=== PATIENT | female | born 1945 | race Caucasian/White ===

== ENCOUNTER 2020-12-14 08:52 | Observation (INO) | payer MEDICARE, SELFPAY ==
--- NOTE | ~2020-12-14 | CT_ITS ---
EXAMINATION: CT ABDOMEN AND PELVIS WITH CONTRAST CLINICAL INFORMATION: Right and left lower quadrant abdominal pain. History of diverticulitis. COMPARISON: 03/18/2015 CT TECHNIQUE: Multidetector volumetric images were obtained from the superior aspect of the liver through the pubic symphysis following administration 85 mL of Omnipaque 350 intravenous contrast. Sagittal and coronal reformatted images were obtained on the technologist's workstation. Oral contrast: No. This CT examination was performed using dose optimization techniques as appropriate, variously including the following: *Automated exposure control *Adjustment of mA and/or kV according to patient size (this includes techniques or standardized protocols for targeted exams where dose is matched to indication/reason for exam; i.e. extremities or head) *Use of iterative reconstruction technique DLP: 425 mGy-cm FINDINGS: LUNG BASES: The visualized lung bases are unremarkable. LIVER, GALLBLADDER, AND BILIARY TREE: No focal liver lesion. No biliary duct dilatation. Gallbladder surgically absent. Biliary tree is within normal limits. Normal enhancement of the hepatic veins and main portal vein. PANCREAS: Unremarkable. No acute inflammatory changes. SPLEEN: Unremarkable. ADRENAL GLANDS: Unremarkable. KIDNEYS AND URETERS: The kidneys are normal in size, shape, and attenuation. No hydronephrosis, hydroureter, or calculi seen. No perinephric stranding. BLADDER: Unremarkable. GASTROINTESTINAL TRACT: Prominent diverticulosis of the distal descending colon and sigmoid colon. Additional scattered colonic diverticula. No findings to suggest definite diverticulitis. Stomach is nondistended limiting evaluation. No dilated small bowel loops. The appendix contains fluid, and distally is dilated up to approximately 1 cm in diameter. Small focus of air within the lumen. No significant surrounding inflammatory changes evident. Findings are equivocal. Early or evolving appendicitis cannot be excluded. No free fluid or free air. ABDOMINAL WALL: Small fat-containing umbilical hernia. No pathologically enlarged lymph nodes. LYMPH NODES: No lymphadenopathy by size criteria is identified. VASCULAR: Moderate atherosclerotic vascular calcification. PELVIC VISCERA: Within normal limits. OSSEOUS STRUCTURES: Multilevel degenerative changes in the spine, more prominent at L2-L3, L4-L5. No evidence of acute fracture. CT/CT abdomen pelvis w con IMPRESSION: 1. The distal aspect of the appendix is prominent in caliber, measuring up to 1 cm in diameter. No significant surrounding inflammatory changes are seen. Findings are equivocal. Early or evolving acute appendicitis cannot be excluded. Please clinically correlate and manage. 2. Prominent diverticulosis of the distal descending colon and sigmoid colon. No surrounding inflammatory changes of wall thickening to suggest definite diverticulitis. 3. Thoracolumbar spine degenerative changes, slight progression from previous.
[2020-12-14 09:39] VITALS: BP 160/63; PULSE 75; RESP 14; TEMP 36.5; O2SAT 99; BMI 23.8
--- NOTE | 2020-12-14 09:59 | ED.ABDPAIN ---
HPI - Abdominal Pain General Chief Complaint: Abdominal Pain Stated Complaint: lower lt side abd pain Time Seen by Provider: 12/14/20 09:40 Source: patient Mode of arrival: ambulatory History of Present Illness HPI narrative: 75-year-old female a past medical history of diverticulitis, HTN, Lyme disease, hysterectomy, cholecystectomy, presenting to the ED complaining of lower abdominal discomfort > LLQ, bloating, nausea, and constipation x5 days. Denies fever, chills, vomiting, diarrhea, dysuria/hematuria MD elicited complaint: abdominal pain Related Data Allergies Allergy/AdvReac Type Severity Reaction Status Date / Time codeine [CODEINE] Allergy Unknown HIVES Unverified 05/07/20 16:13 lisinopril [LISINOPRIL] Allergy Unknown MIGRAINE/HEAD Unverified 05/07/20 16:13 PRESSURE morphine [MORPHINE] Allergy Unknown ITCHING Unverified 05/07/20 16:13 Review of Systems Review of Systems Constitutional: No Fever, No Chills Cardiovascular: No Chest Pain, No SOB Respiratory: No Cough, No Dyspnea Gastrointestinal: + Nausea, No Vomiting, No Diarrhea, +No Constipation, + Abdominal pain Genitourinary: No Dysuria, No Urinary Frequency, No Hematuria, No Flank Pain Musculoskeletal: No joint pain, No Myalgias, No Joint Swelling Skin: No Skin Lesions, No rash Neuro: No Weakness, No Numbness, No Paresthesias, No Dizziness, No Headache Yes all other systems are reviewed and are negative Physical Exam Vital Signs: Vital Signs: Last Vital Signs Temp 97.7 F 12/14/20 12:45 Pulse 68 12/14/20 12:45 Resp 19 12/14/20 12:45 BP 148/67 H 12/14/20 12:45 Pulse Ox 99 12/14/20 12:45 Body Mass Index 23.8 Const: General: cooperative, healthy appearing, comfortable and no acute distress Orientation/consciousness: patient oriented x3 Limitations: no limitations HENMT: Head: Yes normal to inspection Ears: hearing grossly normal bilaterally General nose exam: Normal external nose present Face and sinus: Yes normal facial exam Eyes: General: appearance normal, both eyes and all related structures EOM: EOMs intact bilaterally Neck: Neck: Yes normal visual inspection and Yes no meningeal signs Resp: Effort & Inspection: normal respiratory effort Cardio: Rate: regular rate GI: Inspection: Yes normal to inspection Palpation (GI): Soft to palpation, Tenderness to palpation present (GI) in the LLQ and in the RLQ, no guarding and not rigid : General: Yes no CVA tenderness Back/Spine/Pelvis: Back: no CVA tenderness Skin: Rashes: no rashes Wounds: no wounds Neuro: General: patient oriented x3 and no meningeal signs Gait exam (Neuro): Normal gait present Extrem: General: Yes normal to inspection Course Course Course Narrative: -no leukocytosis, labs otherwise unremarkable CT abdomen pelvis w con IMPRESSION: 1. The distal aspect of the appendix is prominent in caliber, measuring up to 1 cm in diameter. No significant surrounding inflammatory changes are seen. Findings are equivocal. Early or evolving acute appendicitis cannot be excluded. Please clinically correlate and manage. 2. Prominent diverticulosis of the distal descending colon and sigmoid colon. No surrounding inflammatory changes of wall thickening to suggest definite diverticulitis. 3. Thoracolumbar spine degenerative changes, slight progression from previous. >> case discussed with surgery Dr. Kinney who will evaluate patient -Dr. Kinney evaluated patient in the ED and will admit for further management/observation MDM - Abdominal Pain MDM Narrative Medical decision making narrative: 75-year-old female a past medical history of diverticulitis, HTN, Lyme disease, hysterectomy, cholecystectomy, presenting to the ED complaining of lower abdominal discomfort > LLQ, bloating, nausea, and constipation x5 days. On exam VS as, NAD/well-appearing, abdomen soft with RLQ/LLQ ttp, no rebound or guarding, no CVAT. Concern for diverticulitis/appendicitis vs colitis vs UTI. Lower concern for renal stone Plan: Labs, UA, CT AP, IVF, reassess Lab Data Result diagrams: 12/14/20 10:15 12/14/20 10:15 Labs: Lab Results 12/14/20 12/14/20 12/14/20 Range/Units 10:15 10:15 10:15 WBC 4.9 (4.8-10.8) X10*3/uL RBC 3.98 L (4.20-5.50) X10*6/uL Hgb 12.4 (12.0-16.0) g/dl Hct 36.8 L (37-47) % MCV 92.5 (80-98) fL MCH 31.2 (27.0-33.0) pg MCHC 33.7 (31.0-35.0) g/dl RDW 13.1 (11.0-16.0) % Plt Count 183 (160-400) X10*3/uL MPV 8.4 L (9.4-12.3) fL Immature Gran % (Auto) 0.2 (0.0-0.4) % Neut % (Auto) 52.9 (45-73) % Lymph % (Auto) 31.4 (20-40) % Webb % (Auto) 10.5 (2-11) % Eos % (Auto) 3.8 (0-4) % Baso % (Auto) 1.2 (0-2) % Lymph # (Auto) 1.6 (1.2-4.9) X10*3/uL Webb # (Auto) 0.5 (0.1-1.2) X10*3/uL Eos # (Auto) 0.2 (0.0-0.4) X10*3/uL Baso # (Auto) 0.1 (0.0-0.2) X10*3/uL Abs Immat Gran (auto) 0.01 (0.00-0.03) X10*3/uL Absolute Neuts (auto) 2.6 (2.0-8.3) X10*3/uL Absolute Nucleated RBC 0.000 (0.0-0.012) X10*3/uL Nucleated RBC % (auto) 0.0 (0.0-0.2) /100WBC Hold Blue Top SEE NOTE Sodium 139 (135-145) mmol/L Potassium 4.2 (3.3-5.1) mmol/L Chloride 105 (96-108) mmol/L Carbon Dioxide 26 (22-29) mmol/L Anion Gap 12 (12-20) BUN 13 (9-16) mg/dL Creatinine 0.80 (0.5-1.4) mg/dL Estim Creat Clear Calc 46.5 Estimated GFR > 60 Random Glucose 95 (60-115) mg/dL Calcium 9.6 (8.4-10.2) mg/dL Magnesium (1.6-2.6) mg/dL Total Bilirubin 0.5 (0.0-1.0) mg/dL Direct Bilirubin 0.2 (0.0-0.5) mg/dL AST 24 (5-31) U/L ALT 18 (0-31) U/L Alkaline Phosphatase 72 (39-117) U/L Total Protein 6.9 (6.5-8.0) g/dL Albumin 4.3 (3.5-5.0) g/dL Lipase (8-78) U/L Urine Color Urine Appearance Urine pH (5.0-8.0) Ur Specific [place] (1.005-1.025) Urine Protein (NEG-TRACE) MG/DL Urine Glucose (UA) (NEG) MG/DL Urine Ketones (NEG) MG/DL Urine Blood (NEG) Urine Nitrite (NEG) Ur Leukocyte Esterase (NEG) 12/14/20 12/14/20 Range/Units 10:15 11:01 WBC (4.8-10.8) X10*3/uL RBC (4.20-5.50) X10*6/uL Hgb (12.0-16.0) g/dl Hct (37-47) % MCV (80-98) fL MCH (27.0-33.0) pg MCHC (31.0-35.0) g/dl RDW (11.0-16.0) % Plt Count (160-400) X10*3/uL MPV (9.4-12.3) fL Immature Gran % (Auto) (0.0-0.4) % Neut % (Auto) (45-73) % Lymph % (Auto) (20-40) % [place] % (Auto) (2-11) % Eos % (Auto) (0-4) % Baso % (Auto) (0-2) % Lymph # (Auto) (1.2-4.9) X10*3/uL [place] # (Auto) (0.1-1.2) X10*3/uL Eos # (Auto) (0.0-0.4) X10*3/uL Baso # (Auto) (0.0-0.2) X10*3/uL Abs Immat Gran (auto) (0.00-0.03) X10*3/uL Absolute Neuts (auto) (2.0-8.3) X10*3/uL Absolute Nucleated RBC (0.0-0.012) X10*3/uL Nucleated RBC % (auto) (0.0-0.2) /100WBC Hold Blue Top Sodium (135-145) mmol/L Potassium (3.3-5.1) mmol/L Chloride (96-108) mmol/L Carbon Dioxide (22-29) mmol/L Anion Gap (12-20) BUN (9-16) mg/dL Creatinine (0.5-1.4) mg/dL Estim Creat Clear Calc Estimated GFR Random Glucose (60-115) mg/dL Calcium (8.4-10.2) mg/dL Magnesium 2.1 (1.6-2.6) mg/dL Total Bilirubin (0.0-1.0) mg/dL Direct Bilirubin (0.0-0.5) mg/dL AST (5-31) U/L ALT (0-31) U/L Alkaline Phosphatase (39-117) U/L Total Protein (6.5-8.0) g/dL Albumin (3.5-5.0) g/dL Lipase 21 (8-78) U/L Urine Color YELLOW Urine Appearance CLEAR Urine pH 5.5 (5.0-8.0) Ur Specific [place] <= 1.005 (1.005-1.025) Urine Protein NEG (NEG-TRACE) MG/DL Urine Glucose (UA) NEG (NEG) MG/DL Urine Ketones NEG (NEG) MG/DL Urine Blood NEG (NEG) Urine Nitrite NEG (NEG) Ur Leukocyte Esterase NEG (NEG) Discharge Plan Discharge Clinical Impression: Abdominal pain Patient Disposition: Admitted As Inpatient [facility] Past Medical History Attestation statement: The following information was validated with the patient. Medical History (Updated 12/14/20 @ 16:15 by LATESHA Manzano) Abdominal pain Diverticulitis HTN (hypertension) Lyme disease Surgical History History of cholecystectomy History of hysterectomy Social History Social History Alcohol intake: never Smoking Status: Never smoker Use of substances other than those prescribed or required for medical reasons: No Advance Directives: No Advance Directives Information Provided: No
[2020-12-14 10:19] LABS: MANUAL DIFF FLAG NO
[2020-12-14] MEDS: 0.9 % Sodium Chloride 1,000 ML 999 ML IVCONT (10:19)
[2020-12-14 10:22] LABS: Basophils Absolute Auto 0.1 X10*3/uL (0.0-0.2); Basophils Percent Auto 1.2 % (0-2); Eosinophils Absolute Auto 0.2 X10*3/uL (0.0-0.4); Eosinophils Percent Auto 3.8 % (0-4); Hematocrit 36.8 % (37-47); Hemoglobin 12.4 g/dl (12.0-16.0); Imm Gran Abs Auto 0.01 X10*3/uL (0.00-0.03); Imm Gran Pct Auto 0.2 % (0.0-0.4); Lymphocytes Absolute Auto 1.6 X10*3/uL (1.2-4.9); Lymphocytes Percent Auto 31.4 % (20-40); Mean Corpuscular HGB Conc 33.7 g/dl (31.0-35.0); Mean Corpuscular Hemoglobin 31.2 pg (27.0-33.0); Mean Corpuscular Volume 92.5 fL (80-98); Mean Platelet Volume 8.4 fL (9.4-12.3); Monocytes Absolute Auto 0.5 X10*3/uL (0.1-1.2); Monocytes Percent Auto 10.5 % (2-11); Neutrophils Absolute Auto 2.6 X10*3/uL (2.0-8.3); Neutrophils Percent Auto 52.9 % (45-73); Platelet Count 183 X10*3/uL (160-400); Red Blood Count 3.98 X10*6/uL (4.20-5.50); Red Cell Distribution Width 13.1 % (11.0-16.0); White Blood Count 4.9 X10*3/uL (4.8-10.8)
[2020-12-14 10:51] LABS: Alanine Aminotransferase 18 U/L (0-31); Albumin Level 4.3 g/dL (3.5-5.0); Alkaline Phosphatase 72 U/L (39-117); Anion Gap 12 (12-20); Aspartate Amino Transferase 24 U/L (5-31); Bilirubin Direct 0.2 mg/dL (0.0-0.5); Bilirubin Total 0.5 mg/dL (0.0-1.0); Blood Urea Nitrogen 13 mg/dL (9-16); Calcium 9.6 mg/dL (8.4-10.2); Carbon Dioxide 26 mmol/L (22-29); Chloride 105 mmol/L (96-108); Creatinine Clr Calc Pharmacy 46.5; Estimated Glomerular Filt Rate > 60; Glucose Random 95 mg/dL (60-115); Lipase 21 U/L (8-78); Magnesium 2.1 mg/dL (1.6-2.6); Potassium 4.2 mmol/L (3.3-5.1); Sodium 139 mmol/L (135-145); Total Protein 6.9 g/dL (6.5-8.0)
[2020-12-14 11:10] LABS: Glucose Urine UA NEG (NEG); Leukocyte Esterase Urine NEG (NEG); Nitrite Urine NEG (NEG); PH 5.5 (5.0-8.0); Specific Gravity - Urine <= 1.005 (1.005-1.025); Urine Blood NEG (NEG); Urine Ketones NEG (NEG); Urine Protein NEG (NEG-TRACE)
[2020-12-14 11:15] LABS: Appearance Urine CLEAR; Color Urine YELLOW
[2020-12-14] MEDS: iohexoL 350 MG/ML 100 ML INFUS..BTL IV (12:17)
[2020-12-14 12:45] VITALS: BP 148/67; PULSE 68; RESP 19; TEMP 36.5; O2SAT 99
--- NOTE | 2020-12-14 15:22 | P.HPGS_ITS ---
History of Present Illness History of Present Illness Date of Service: 12/15/20 Chief complaint: Abdominal pain Narrative: Bernie Reyes is a 75 year old female who came to the emergency room early this morning because of left lower quadrant pain. She says he has a history of acute diverticulitis and was concerned that this was another episode. She said that this lower lower quadrant pain started about 5 days ago. She denies any diarrhea although states that she has chronic constipation. She says she follows Dr. Lorenzo because of her GI complaints. Her last colonoscopy seems to be in 2011 and showed diverticulosis. She does not recall when she had her last episode of diverticulitis. She underwent a CAT scan today in the ER which showed a mildly distended appendix and the radiologist stated this could represent early appendicitis. I was therefore consulted. The patient currently says that she has minimal pain on the left lower quadrant. She denies any right lower quadrant pain. She denies any nausea or vomiting. Review of Systems Constitutional: Constitutional: Denies chills and Denies fever(s) Cardiovascular: Cardiovascular: Denies chest pain, Denies dyspnea and Denies dyspnea on exertion Respiratory: Respiratory: Denies cough, Denies dyspnea and Denies dyspnea on exertion Gastrointestinal: Gastrointestinal: Denies hematochezia, Denies change in bowel habits and Reports constipation Genitourinary: Genitourinary: Denies hematuria Musculoskeletal: Musculoskeletal: Denies back pain and Denies limited range of motion Neurologic: Denies focal weakness and Denies convulsions Psychiatric: Psychiatric: Denies depression and Denies mood swings PMF Past Medical History Medical History (Updated 12/14/20 @ 16:15 by LATESHA Manzano) Abdominal pain Diverticulitis HTN (hypertension) Lyme disease Surgical History Surgical History History of cholecystectomy History of hysterectomy Social History Social History Household Members: None Housing: House Alcohol intake: never Smoking Status: Never smoker Smoked in Last 30 Days: No Use of substances other than those prescribed or required for medical reasons: No Currently Displaying Signs/Symptoms of Drug Intoxication Withdrawal: No Have you been hit, kicked, punched, or otherwise hurt by someone within the past year? If so, by whom?: No Do you feel safe in your current relationship?: Yes Is there a partner from a previous relationship who is making you feel unsafe now?: No Are you made to feel afraid or neglected: No Advance Directives: No Advance Directives Information Provided: No Do you have thoughts of harming others: None Do you have a plan to hurt others: No Plan Recently lost weight without trying: No service: No Current occupational status: retired Meds Allergies Allergy/AdvReac Type Severity Reaction Status Date / Time codeine [CODEINE] Allergy Unknown Vomiting Unverified 12/14/20 21:15 lisinopril [LISINOPRIL] Allergy Unknown MIGRAINE/HEAD Unverified 05/07/20 16:13 PRESSURE morphine [MORPHINE] Allergy Unknown ITCHING Unverified 05/07/20 16:13 Physical Exam Vital Signs: Vital Signs: Last Vital Signs Temp 97.7 F 12/14/20 12:45 Pulse 68 12/14/20 12:45 Resp 19 12/14/20 12:45 BP 148/67 H 12/14/20 12:45 Pulse Ox 99 12/14/20 12:45 Body Mass Index 23.8 Const: General: comfortable and no acute distress Orientation/consciousness: patient oriented x3 Neck: Neck: Yes no lymphadenopathy Resp: Auscultation: clear to auscultation bilaterally Cardio: Rhythm: regular rhythm GI: Other: Very mild tenderness to deep palpation in the left lower quadrant Palpation (GI): Soft to palpation, not firm, Tenderness to palpation present (GI), no guarding and not rigid Neuro: General: patient oriented x3 Results Results Labs: Short CBC 12/14/20 Range/Units 10:15 WBC 4.9 (4.8-10.8) X10*3/uL Hgb 12.4 (12.0-16.0) g/dl Hct 36.8 L (37-47) % Plt Count 183 (160-400) X10*3/uL BMP 12/14/20 10:15 Sodium 139 Potassium 4.2 Chloride 105 Carbon Dioxide 26 BUN 13 Creatinine 0.80 Calcium 9.6 Liver Function 12/14/20 Range/Units 10:15 Total Bilirubin 0.5 (0.0-1.0) mg/dL Direct Bilirubin 0.2 (0.0-0.5) mg/dL AST 24 (5-31) U/L ALT 18 (0-31) U/L Alkaline Phosphatase 72 (39-117) U/L Albumin 4.3 (3.5-5.0) g/dL Urine 12/14/20 Range/Units 11:01 Urine Color YELLOW Urine Appearance CLEAR Urine pH 5.5 (5.0-8.0) Ur Specific [place] <= 1.005 (1.005-1.025) Urine Protein NEG (NEG-TRACE) MG/DL Urine Glucose (UA) NEG (NEG) MG/DL Assessment and Plan (1) Abdominal pain: Status: Acute She describes left lower quadrant pain for about 5 days now and has a history of acute diverticulitis. She had a CAT scan done showing mildly distended appendix. There is air in tip of the appendix which indicates a patent lumen. There are no inflammatory changes around the appendix as well and she has no tenderness on this side at all. She clinically does not have acute appendicitis. However, I will keep her overnight for observation in view of her left lower quadrant pain. Her CAT scan does not reveal any diverticulitis although she does have a history of diverticulosis and previous diverticulitis in the distant past. She has prominent diverticulosis of the sigmoid in the distal left colon but no inflammatory changes are seen. In the absence of leukocytosis, I will not start her antibiotics at this time. I will repeat her labs tomorrow. She does state that her pain is very minimal at this point.
[2020-12-14] MEDS: Lactated Ringers 1,000 ML 80 ML IVCONT (16:26)
[2020-12-14 18:43] VITALS: BP 154/56; PULSE 72; RESP 20; TEMP 36.6; O2SAT 96
[2020-12-14 21:04] VITALS: BP 167/65; PULSE 74; RESP 20; TEMP 36.2; O2SAT 97
[2020-12-14] MEDS: Heparin Sodium,Porcine 5,000 UNIT/ML VIAL 5000 UNIT SUBCUT (21:27)
[2020-12-14] MEDS: LORazepam 0.5 MG TABLET PO (21:44)
[2020-12-14 21:50] VITALS: BP 167/65; PULSE 74
[2020-12-14] MEDS: Valsartan 80 MG TABLET PO (21:50)
[2020-12-15] MEDS: Lactated Ringers 1,000 ML 80 ML IVCONT (03:52)
[2020-12-15 05:44] VITALS: BP 135/60; PULSE 63; RESP 20; TEMP 36.4; O2SAT 96
[2020-12-15 06:50] LABS: Hematocrit 34.6 % (37-47); Hemoglobin 11.6 g/dl (12.0-16.0); Mean Corpuscular HGB Conc 33.5 g/dl (31.0-35.0); Mean Corpuscular Hemoglobin 31.3 pg (27.0-33.0); Mean Corpuscular Volume 93.3 fL (80-98); Mean Platelet Volume 8.7 fL (9.4-12.3); Platelet Count 187 X10*3/uL (160-400); Red Blood Count 3.71 X10*6/uL (4.20-5.50); Red Cell Distribution Width 13.1 % (11.0-16.0); White Blood Count 4.6 X10*3/uL (4.8-10.8)
[2020-12-15 07:24] LABS: Anion Gap 13 (12-20); Blood Urea Nitrogen 10 mg/dL (9-16); Calcium 8.6 mg/dL (8.4-10.2); Carbon Dioxide 25 mmol/L (22-29); Chloride 107 mmol/L (96-108); Estimated Glomerular Filt Rate > 60; Glucose Random 84 mg/dL (60-115); Potassium 3.8 mmol/L (3.3-5.1); Sodium 141 mmol/L (135-145)
--- NOTE | 2020-12-15 07:30 | P.PNGS_ITS ---
Subjective Subjective Date of Service: 12/15/20 Interval history: feels well says she had a good night minimal pain on LLQ no pain at all on RLQ Physical Exam Vital Signs: Vital Signs: Last Vital Signs Temp 97.5 F 12/15/20 05:44 Pulse 63 12/15/20 05:44 Resp 20 12/15/20 05:44 BP 135/60 12/15/20 05:44 Pulse Ox 96 12/15/20 05:44 Body Mass Index 23.8 Laboratory Results - last 24 hr 12/14/20 12/14/20 12/14/20 10:15 10:15 10:15 WBC 4.9 RBC 3.98 L Hgb 12.4 Hct 36.8 L MCV 92.5 MCH 31.2 MCHC 33.7 RDW 13.1 Plt Count 183 MPV 8.4 L Immature Gran % (A uto) 0.2 Neut % (Auto) 52.9 Lymph % (Auto) 31.4 [place] % (Auto) 10.5 Eos % (Auto) 3.8 Baso % (Auto) 1.2 Lymph # (Auto) 1.6 [place] # (Auto) 0.5 Eos # (Auto) 0.2 Baso # (Auto) 0.1 Abs Immat Gran (au to) 0.01 Absolute Neuts (au to) 2.6 Absolute Nucleated RBC 0.000 Nucleated RBC % (a uto) 0.0 Hold Blue Top SEE NOTE Sodium 139 Potassium 4.2 Chloride 105 Carbon Dioxide 26 Anion Gap 12 BUN 13 Creatinine 0.80 Estim Creat Clear Calc 46.5 Estimated GFR > 60 Random Glucose 95 Calcium 9.6 Magnesium Total Bilirubin 0.5 Direct Bilirubin 0.2 AST 24 ALT 18 Alkaline Phosphata se 72 Total Protein 6.9 Albumin 4.3 Lipase Urine Color Urine Appearance Urine pH Ur Specific [place] y Urine Protein Urine Glucose (UA) Urine Ketones Urine Blood Urine Nitrite Ur Leukocyte Susanna ase 12/14/20 12/14/20 12/15/20 10:15 11:01 05:56 WBC 4.6 L RBC 3.71 L Hgb 11.6 L Hct 34.6 L MCV 93.3 MCH 31.3 MCHC 33.5 RDW 13.1 Plt Count 187 MPV 8.7 L Immature Gran % (A uto) Neut % (Auto) Lymph % (Auto) [place] % (Auto) Eos % (Auto) Baso % (Auto) Lymph # (Auto) [place] # (Auto) Eos # (Auto) Baso # (Auto) Abs Immat Gran (au to) Absolute Neuts (au to) Absolute Nucleated RBC 0.000 Nucleated RBC % (a uto) 0.0 Hold Blue Top Sodium Potassium Chloride Carbon Dioxide Anion Gap BUN Creatinine Estim Creat Clear Calc Estimated GFR Random Glucose Calcium Magnesium 2.1 Total Bilirubin Direct Bilirubin AST ALT Alkaline Phosphata se Total Protein Albumin Lipase 21 Urine Color YELLOW Urine Appearance CLEAR Urine pH 5.5 Ur Specific [place] y <= 1.005 Urine Protein NEG Urine Glucose (UA) NEG Urine Ketones NEG Urine Blood NEG Urine Nitrite NEG Ur Leukocyte Susanna ase NEG 12/15/20 05:56 WBC RBC Hgb Hct MCV MCH MCHC RDW Plt Count MPV Immature Gran % (A uto) Neut % (Auto) Lymph % (Auto) [place] % (Auto) Eos % (Auto) Baso % (Auto) Lymph # (Auto) [place] # (Auto) Eos # (Auto) Baso # (Auto) Abs Immat Gran (au to) Absolute Neuts (au to) Absolute Nucleated RBC Nucleated RBC % (a uto) Hold Blue Top Sodium 141 Potassium 3.8 Chloride 107 Carbon Dioxide 25 Anion Gap 13 BUN 10 Creatinine 0.69 Estim Creat Clear Calc 54.0 Estimated GFR > 60 Random Glucose 84 Calcium 8.6 D Magnesium Total Bilirubin Direct Bilirubin AST ALT Alkaline Phosphata se Total Protein Albumin Lipase Urine Color Urine Appearance Urine pH Ur Specific [place] y Urine Protein Urine Glucose (UA) Urine Ketones Urine Blood Urine Nitrite Ur Leukocyte Susanna ase Const: General: comfortable, no acute distress, alert and awake Resp: Effort & Inspection: normal respiratory effort Cardio: Rate: regular rate GI: Palpation (GI): Soft to palpation, not firm, Tenderness to palpation present (GI) (very minimal tenderness on deep palpation LLQ, no tenderness at all on RLQ), no guarding and not rigid Progress Note: A&P Assessment and plan (1) Abdominal pain: Status: Acute Assessment and Plan: very minimal pain WBC normal not c/w appendicitis CT does not show any inflammatory changes in abdomen advance diet if tolerating, possible home later today Fall Risk Details Current Medications: Current Medications Generic Name Dose Route Start Last Admin Trade Name Freq PRN Reason Stop Dose Admin Acetaminophen 650 mg 12/14/20 15:29 Acetaminophen 325 Mg Tablet PO Q6H PRN Pain, Mild (Pain Scale 1-3) Heparin Sodium (Porcine) 5,000 unit 12/14/20 21:00 12/14/20 21:27 Heparin Sodium,Porcine 5,000 Unit/Ml Vial SUBCUT 5,000 unit BID MARYSOL Administration Hydromorphone HCl 0.25 mg 12/14/20 15:29 Hydromorphone Hcl 0.5 Mg/0.5 Ml Syringe IVPUSH Q4H PRN Pain, Severe (Pain Scale 7-10) Lactated Ringer's 1,000 mls @ 80 mls/hr 12/14/20 16:00 12/15/20 03:52 Lr IVCONT 80 mls/hr .[id number] MARYSOL Administration Ibuprofen 600 mg 12/14/20 15:31 Ibuprofen 600 Mg Tablet PO Q6H PRN Pain, Moderate (Pain Scale 4-6 Lorazepam 0.5 mg 12/14/20 16:34 12/14/20 21:44 Lorazepam 0.5 Mg Tablet PO 0.5 mg BEDTIME PRN Administration insomnia Valsartan 80 mg 12/15/20 09:00 12/14/20 21:50 Valsartan 80 Mg Tablet PO 80 mg DAILY MARYSOL Administration Time Spent With Patient Time: Total time spent is greater than 50% in coordination of care (as documented) at patient's floor/unit and/or counseling patient: Time with patient: 15 - 24 minutes
[2020-12-15 08:09] VITALS: BP 138/62; PULSE 66; RESP 18; TEMP 36.1; O2SAT 99
--- NOTE | 2020-12-15 12:55 | MHC.CM.PN ---
nurse cardiac care nurse note electronic medical record reviewed along with case discussed with staff nurse and on multiple disciplainry rounds. met with patient ,she is active, indpendent in all adls and mobility, she continues to drive and transported herself into this car, and her car her is in the second er parking area . she has no vna services in the home , she does have home cpap through [facility] , discharge plan home possibly today tor tomorrow no services transportation self care [place] [facility] [place] pcp alf reaves
--- NOTE | 2020-12-15 13:51 | MHC.CM.PN ---
NURSE PROVIDER RELATIONS ADVOCATE NOTE ELECTRONIC MEDICAL RECORD REVIEWED ALONG WITH CASE DISCUSSED WITH STAFF NURSE , PATIENT WILL BE DISCHAGRED HOME TODAY NO SERVCIES NEEDED
--- NOTE | 2020-12-15 14:41 | P.EN_ITS ---
Event Note Date of Service: 12/15/20 Event Note: She continues to feel well Denies abdominal pain Tolerating diet No fevers Looks well Abdomen remained soft nondistended nontender She says that she feels ready to be discharged Will DC home Instructed to follow up with Dr. 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
[2020-12-15] MEDS: Acetaminophen 325 MG TABLET 650 MG PO (14:55)
--- NOTE | 2020-12-16 12:03 | PM.DS ---
DS: Providers Provider Date of Service: 12/16/20 Date of admission: 12/14/20 15:30 Primary care physician: Betty Bustos MD DS: Diagnosis Discharge Diagnosis (1) Abdominal pain: Status: Acute Problem details: 75-year-old female with history of diverticular disease, who came to the emergency room on 12/14/2020 because of left lower quadrant pain. She underwent a CAT scan which showed diverticulosis but did not reveal any inflammatory changes that would suggest diverticulitis. She did have some thickened appendix and there was a concern for appendicitis on the report. However clinically, she did not have any tenderness right lower quadrant. She was therefore admitted because of this concern. She was started on clear liquids patient tolerated well. She did not have any significant problems overnight. She had a very benign exam and did not have significant tenderness on her 1st hospital day. I advance her diet which she continued to tolerate. She did not have any leukocytosis. She was therefore discharged on December 15, 2020. She was also instructed to follow up with her wardrobe supervisor with regards to her diverticulosis as she says that she felt that she was due for colonoscopy. DS: Summary Time Spent with Patient Time attestation: Total time spent providing and/or coordinating discharge services: Discharge coordination time: Less than 30 minutes Physical Exam Vital Signs: Vital Signs: Last Vital Signs Temp 97.0 F 12/15/20 08:09 Pulse 66 12/15/20 08:09 Resp 18 12/15/20 08:09 BP 138/62 12/15/20 08:09 Pulse Ox 99 12/15/20 08:09 Body Mass Index 23.8 Const: General: comfortable and no acute distress Orientation/consciousness: patient oriented x3 Neck: Neck: Yes no lymphadenopathy Resp: Auscultation: clear to auscultation bilaterally Cardio: Rhythm: regular rhythm GI: Palpation (GI): Soft to palpation, nontender and no guarding Neuro: General: patient oriented x3 DS: Data Data Completed and Pending Labs on day of discharge: Laboratory Results WBC 4.6 X10*3/uL (4.8-10.8) L 12/15/20 05:56 RBC 3.71 X10*6/uL (4.20-5.50) L 12/15/20 05:56 Hgb 11.6 g/dl (12.0-16.0) L 12/15/20 05:56 Hct 34.6 % (37-47) L 12/15/20 05:56 MCV 93.3 fL (80-98) 12/15/20 05:56 MCH 31.3 pg (27.0-33.0) 12/15/20 05:56 MCHC 33.5 g/dl (31.0-35.0) 12/15/20 05:56 RDW 13.1 % (11.0-16.0) 12/15/20 05:56 Plt Count 187 X10*3/uL (160-400) 12/15/20 05:56 MPV 8.7 fL (9.4-12.3) L 12/15/20 05:56 Immature Gran % (Auto) 0.2 % (0.0-0.4) 12/14/20 10:15 Neut % (Auto) 52.9 % (45-73) 12/14/20 10:15 Lymph % (Auto) 31.4 % (20-40) 12/14/20 10:15 [place] % (Auto) 10.5 % (2-11) 12/14/20 10:15 Eos % (Auto) 3.8 % (0-4) 12/14/20 10:15 Baso % (Auto) 1.2 % (0-2) 12/14/20 10:15 Lymph # (Auto) 1.6 X10*3/uL (1.2-4.9) 12/14/20 10:15 [place] # (Auto) 0.5 X10*3/uL (0.1-1.2) 12/14/20 10:15 Eos # (Auto) 0.2 X10*3/uL (0.0-0.4) 12/14/20 10:15 Baso # (Auto) 0.1 X10*3/uL (0.0-0.2) 12/14/20 10:15 Abs Immat Gran (auto) 0.01 X10*3/uL (0.00-0.03) 12/14/20 10:15 Absolute Neuts (auto) 2.6 X10*3/uL (2.0-8.3) 12/14/20 10:15 Absolute Nucleated RBC 0.000 X10*3/uL (0.0-0.012) 12/15/20 05:56 Nucleated RBC % (auto) 0.0 /100WBC (0.0-0.2) 12/15/20 05:56 Hold Blue Top SEE NOTE 12/14/20 10:15 Sodium 141 mmol/L (135-145) 12/15/20 05:56 Potassium 3.8 mmol/L (3.3-5.1) 12/15/20 05:56 Chloride 107 mmol/L (96-108) 12/15/20 05:56 Carbon Dioxide 25 mmol/L (22-29) 12/15/20 05:56 Anion Gap 13 (12-20) 12/15/20 05:56 BUN 10 mg/dL (9-16) 12/15/20 05:56 Creatinine 0.69 mg/dL (0.5-1.4) 12/15/20 05:56 Estim Creat Clear Calc 54.0 12/15/20 05:56 Estimated GFR > 60 12/15/20 05:56 Random Glucose 84 mg/dL (60-115) 12/15/20 05:56 Calcium 8.6 mg/dL (8.4-10.2) D 12/15/20 05:56 Magnesium 2.1 mg/dL (1.6-2.6) 12/14/20 10:15 Total Bilirubin 0.5 mg/dL (0.0-1.0) 12/14/20 10:15 Direct Bilirubin 0.2 mg/dL (0.0-0.5) 12/14/20 10:15 AST 24 U/L (5-31) 12/14/20 10:15 ALT 18 U/L (0-31) 12/14/20 10:15 Alkaline Phosphatase 72 U/L (39-117) 12/14/20 10:15 Total Protein 6.9 g/dL (6.5-8.0) 12/14/20 10:15 Albumin 4.3 g/dL (3.5-5.0) 12/14/20 10:15 Lipase 21 U/L (8-78) 12/14/20 10:15 Urine Color YELLOW 12/14/20 11:01 Urine Appearance CLEAR 12/14/20 11:01 Urine pH 5.5 (5.0-8.0) 12/14/20 11:01 Ur Specific [place] <= 1.005 (1.005-1.025) 12/14/20 11:01 Urine Protein NEG MG/DL (NEG-TRACE) 12/14/20 11:01 Urine Glucose (UA) NEG MG/DL (NEG) 12/14/20 11:01 Urine Ketones NEG MG/DL (NEG) 12/14/20 11:01 Urine Blood NEG (NEG) 12/14/20 11:01 Urine Nitrite NEG (NEG) 12/14/20 11:01 Ur Leukocyte Esterase NEG (NEG) 12/14/20 11:01 Impressions Abdomen/Pelvis CT 12/14/20 09:44 IMPRESSION: 1. The distal aspect of the appendix is prominent in caliber, measuring up to 1 cm in diameter. No significant surrounding inflammatory changes are seen. Findings are equivocal. Early or evolving acute appendicitis cannot be excluded. Please clinically correlate and manage. 2. Prominent diverticulosis of the distal descending colon and sigmoid colon. No surrounding inflammatory changes of wall thickening to suggest definite diverticulitis. 3. Thoracolumbar spine degenerative changes, slight progression from previous. Discharge Plan Discharge Patient Disposition: Home, Self-Care Discharge Diagnosis: abdominal pain Referrals: Betty Bustos MD [Primary Care Provider] - 1 Week Discharge Orders: Discharge Order (Routine); Ordered 12/15/20 Ordered By: Vick Kinney Activity on Discharge: As tolerated Stand Alone Forms: Patient Portal Discharge page Care Plan Goals: high fiber diet control chronic constipation Health Concerns: diverticulosis Plan of Treatment: ffup with Dr. Lorenzo Assessment: much improved; pain resolved Discharge Date/Time: 12/15/20 15:16
== END 2020-12-15 15:16 | disposition home or self-care (01) ==
LOC: HO.ED 16:15 → HO.EDOVER 18:42 → HO.S3 19:00
PROVIDERS: Physician Assistant; Admitting Provider Surgery; Emergency Provider Internal Medicine; PCP Pediatrics; Visit Provider Surgery
DX: R10.32 Left lower quadrant pain (principal); R10.31 Right lower quadrant pain; K57.30 Diverticulosis of large intestine without perforation or abscess without bleeding; K59.09 Other constipation; R14.0 Abdominal distension (gaseous); M47.815 Spondylosis without myelopathy or radiculopathy, thoracolumbar region; I10 Essential (primary) hypertension; A69.20 Lyme disease, unspecified; Z90.710 Acquired absence of both cervix and uterus; Z90.49 Acquired absence of other specified parts of digestive tract; Z88.6 Allergy status to analgesic agent; Z88.8 Allergy status to other drugs, medicaments and biological substances; Z79.899 Other long term (current) drug therapy
CPT/HCPCS: 36415; 74177; 80048; 80076; 81003; 83690; 83735; 85025; 85027; 96360; 96361; 99218; 99225; 99285; Q9967

== ENCOUNTER 2021-05-15 05:54 | Emergency (ER) | payer MEDICARE, SELFPAY ==
--- NOTE | ~2021-05-15 | CT_ITS ---
EXAMINATION: CT ABDOMEN AND PELVIS WITH CONTRAST CLINICAL INFORMATION: Abdominal pain. History of diverticulitis. COMPARISON: Previous exam November 2020 TECHNIQUE: Multidetector volumetric images were obtained from the superior aspect of the liver through the pubic symphysis following administration 85 mL of Omnipaque 350 intravenous contrast. Sagittal and coronal reformatted images were obtained on the technologist's workstation. Oral contrast: Yes This CT examination was performed using dose optimization techniques as appropriate, variously including the following: *Automated exposure control *Adjustment of mA and/or kV according to patient size (this includes techniques or standardized protocols for targeted exams where dose is matched to indication/reason for exam; i.e. extremities or head) *Use of iterative reconstruction technique DLP: 456 mGy-cm FINDINGS: LUNG BASES: The visualized lung bases are unremarkable. LIVER, GALLBLADDER, AND BILIARY TREE: The liver is normal in size, shape, and attenuation. No focal hepatic lesion or biliary ductal dilatation is present. The gallbladder has been removed. PANCREAS: Unremarkable. SPLEEN: Unremarkable. ADRENAL GLANDS: Unremarkable. KIDNEYS AND URETERS: The kidneys are normal in size, shape, and attenuation. No hydronephrosis, hydroureter, or calculi seen. No perinephric stranding. BLADDER: Unremarkable. GASTROINTESTINAL TRACT: There is diverticulosis of the colon. There is wall thickening of the sigmoid colon. There is stranding of the surrounding fat. Findings are suggestive of acute diverticulitis. The appendix is slightly dilated and fluid-filled measuring up to 10 mm. There is air seen in the tip of the appendix. Periappendiceal fat is normal. The appendix is similar appearing to November 2020 exam.. ABDOMINAL WALL: No significant hernia is appreciated. LYMPH NODES: Normal. VASCULAR: Unremarkable. PELVIC VISCERA: Uterus appears to have been removed. No pelvic mass is seen. OSSEOUS STRUCTURES: There are degenerative changes of the spine. CT/CT abdomen pelvis w con IMPRESSION: Sigmoid diverticulitis. No evidence of obstruction, perforation or abscess. The appendix is slightly dilated and filled with fluid measuring up to 1 cm. This is similar to previous exam November 2020. Early appendicitis cannot be excluded and correlation with clinical exam recommended.
[2021-05-15 06:11] VITALS: BP 175/79; PULSE 84; RESP 16; TEMP 36; O2SAT 97; BMI 24.5
[2021-05-15 07:31] LABS: MANUAL DIFF FLAG NO
[2021-05-15 07:34] LABS: Basophils Absolute Auto 0.1 X10*3/uL (0.0-0.2); Basophils Percent Auto 0.7 % (0-2); Eosinophils Absolute Auto 0.1 X10*3/uL (0.0-0.4); Eosinophils Percent Auto 1.8 % (0-4); Hematocrit 37.3 % (37-47); Hemoglobin 12.7 g/dl (12.0-16.0); Imm Gran Abs Auto 0.01 X10*3/uL (0.00-0.03); Imm Gran Pct Auto 0.1 % (0.0-0.4); Lymphocytes Absolute Auto 1.4 X10*3/uL (1.2-4.9); Lymphocytes Percent Auto 17.8 % (20-40); Mean Corpuscular Hemoglobin 31.3 pg (27.0-33.0); Mean Corpuscular Volume 91.9 fL (80-98); Mean Platelet Volume 8.4 fL (9.4-12.3); Monocytes Absolute Auto 0.7 X10*3/uL (0.1-1.2); Neutrophils Absolute Auto 5.4 X10*3/uL (2.0-8.3); Neutrophils Percent Auto 70.6 % (45-73); Platelet Count 180 X10*3/uL (160-400); Red Blood Count 4.06 X10*6/uL (4.20-5.50); Red Cell Distribution Width 12.5 % (11.0-16.0); White Blood Count 7.6 X10*3/uL (4.8-10.8)
[2021-05-15 07:50] LABS: Alanine Aminotransferase 18 U/L (0-31); Albumin Level 4.4 g/dL (3.5-5.0); Alkaline Phosphatase 85 U/L (39-117); Anion Gap 15 (12-20); Aspartate Amino Transferase 23 U/L (5-31); Bilirubin Total 0.5 mg/dL (0.0-1.0); Blood Urea Nitrogen 10 mg/dL (9-16); Calcium 9.6 mg/dL (8.4-10.2); Carbon Dioxide 25 mmol/L (22-29); Chloride 104 mmol/L (96-108); Creatinine Clr Calc Pharmacy 51.5; Estimated Glomerular Filt Rate > 60; Glucose Random 126 mg/dL (60-115); Lipase 15 U/L (8-78); Potassium 4.1 mmol/L (3.3-5.1); Sodium 140 mmol/L (135-145); Total Protein 7.3 g/dL (6.5-8.0)
[2021-05-15 09:33] LABS: Appearance Urine CLEAR; Color Urine YELLOW; Glucose Urine UA NEG (NEG); Leukocyte Esterase Urine NEG (NEG); Nitrite Urine NEG (NEG); UACC Culture Trigger NO; Urine Blood TRACE (NEG); Urine Ketones NEG (NEG); Urine Protein NEG (NEG-TRACE)
[2021-05-15 09:46] LABS: Squamous Epithelial Cell Urine 1+ /LPF; WBC Urine 0 /HPF (0-4)
[2021-05-15 09:53] VITALS: BP 149/72; PULSE 86; RESP 18; O2SAT 98
--- NOTE | 2021-05-15 10:13 | ED.ABDPAIN ---
HPI - Abdominal Pain General Chief Complaint: Abdominal Pain Stated Complaint: Abd pain Time Seen by Provider: 05/15/21 09:02 Source: patient Mode of arrival: ambulatory Limitations: no limitations History of Present Illness HPI narrative: Patient is a 75-year-old female with a past medical history of diverticulitis, HTN and Lyme disease who presents with 2 days of left lower quadrant abdominal pain which radiates to the right side. She denies any fevers, nausea, vomiting or diarrhea. She states her last colonoscopy was 9 years ago and was normal. She follows with Dr. Lorenzo. She states she did have an episode of abdominal pain earlier this year for which she was admitted. Related Data Previous Rx's Medication Instructions Recorded ciprofloxacin HCl 500 mg tablet 500 mg PO Q12H #20 tab 05/15/21 metronidazole 500 mg tablet 500 mg PO Q8H #20 tab 05/15/21 (Flagyl) Allergies Allergy/AdvReac Type Severity Reaction Status Date / Time codeine [CODEINE] Allergy Unknown Vomiting Unverified 05/15/21 06:15 lisinopril [LISINOPRIL] Allergy Unknown MIGRAINE/HEAD Unverified 05/15/21 06:15 PRESSURE morphine [MORPHINE] Allergy Unknown ITCHING Unverified 05/15/21 06:15 Review of Systems Review of Systems Yes all other systems are reviewed and are negative Physical Exam Vital Signs: Vital Signs: Last Vital Signs Temp 96.8 F 05/15/21 06:11 Pulse 86 05/15/21 09:53 Resp 18 05/15/21 09:53 BP 149/72 H 05/15/21 09:53 Pulse Ox 98 05/15/21 09:53 Body Mass Index 24.5 Course Course Course Narrative: Patient is a 75-year-old female with a past medical history of diverticulitis, HTN and Lyme disease who presents with 2 days of left lower quadrant abdominal pain which radiates to the right side. VSS. Physical exam revealed RLQ tenderness L LQ tenderness and epigastric tenderness. Will get labs and abdominal CT scan and reassess. Concern for appendicitis versus diverticulitis versus pancreatitis verses UTI. Patient had a similar event happened earlier this year, information from her discharge She underwent a CAT scan which showed diverticulosis but did not reveal any inflammatory changes that would suggest diverticulitis.? She did have some thickened appendix and there was a concern for appendicitis on the report.? However clinically, she did not have any tenderness right lower quadrant.? She was therefore admitted because of this concern.? She was started on clear liquids patient tolerated well.? She did not have any significant problems overnight.? She had a very benign exam and did not have significant tenderness on her 1st hospital day.? I advance her diet which she continued to tolerate.? She did not have any leukocytosis.? She was therefore discharged on December 15, 2020 MDM - Abdominal Pain Lab Data Attestation: I reviewed the patient's lab results. Result diagrams: 05/15/21 07:27 05/15/21 07:27 Labs: Lab Results 05/15/21 05/15/21 05/15/21 Range/Units 07:27 07:27 09:15 WBC 7.6 (4.8-10.8) X10*3/uL RBC 4.06 L (4.20-5.50) X10*6/uL Hgb 12.7 (12.0-16.0) g/dl Hct 37.3 (37-47) % MCV 91.9 (80-98) fL MCH 31.3 (27.0-33.0) pg MCHC 34.0 (31.0-35.0) g/dl RDW 12.5 (11.0-16.0) % Plt Count 180 (160-400) X10*3/uL MPV 8.4 L (9.4-12.3) fL Immature Gran % (Auto) 0.1 (0.0-0.4) % Neut % (Auto) 70.6 (45-73) % Lymph % (Auto) 17.8 L (20-40) % [place] % (Auto) 9.0 (2-11) % Eos % (Auto) 1.8 (0-4) % Baso % (Auto) 0.7 (0-2) % Lymph # (Auto) 1.4 (1.2-4.9) X10*3/uL [place] # (Auto) 0.7 (0.1-1.2) X10*3/uL Eos # (Auto) 0.1 (0.0-0.4) X10*3/uL Baso # (Auto) 0.1 (0.0-0.2) X10*3/uL Abs Immat Gran (auto) 0.01 (0.00-0.03) X10*3/uL Absolute Neuts (auto) 5.4 (2.0-8.3) X10*3/uL Absolute Nucleated RBC 0.000 (0.0-0.012) X10*3/uL Nucleated RBC % (auto) 0.0 (0.0-0.2) /100WBC Sodium 140 (135-145) mmol/L Potassium 4.1 (3.3-5.1) mmol/L Chloride 104 (96-108) mmol/L Carbon Dioxide 25 (22-29) mmol/L Anion Gap 15 (12-20) BUN 10 (9-16) mg/dL Creatinine 0.79 (0.5-1.4) mg/dL Estim Creat Clear Calc 51.5 Estimated GFR > 60 Random Glucose 126 H (60-115) mg/dL Calcium 9.6 D (8.4-10.2) mg/dL Total Bilirubin 0.5 (0.0-1.0) mg/dL AST 23 (5-31) U/L ALT 18 (0-31) U/L Alkaline Phosphatase 85 (39-117) U/L Total Protein 7.3 (6.5-8.0) g/dL Albumin 4.4 (3.5-5.0) g/dL Lipase 15 (8-78) U/L Urine Color YELLOW Urine Appearance CLEAR Urine pH 7.0 (5.0-8.0) Ur Specific [place] 1.010 (1.005-1.025) Urine Protein NEG (NEG-TRACE) MG/DL Urine Glucose (UA) NEG (NEG) MG/DL Urine Ketones NEG (NEG) MG/DL Urine Blood TRACE (NEG) Urine Nitrite NEG (NEG) Ur Leukocyte Esterase NEG (NEG) Urine RBC 1-4 (0) /HPF Urine WBC 0 (0-4) /HPF Ur Squamous Epith Cells 1+ /LPF Urine Bacteria NONE /LPF Imaging Data CT scan - abdomen: Attestation: I personally reviewed and interpreted this imaging study as follows: Radiologist's impression: CT/CT abdomen pelvis w con IMPRESSION: Sigmoid diverticulitis. No evidence of obstruction, perforation or abscess. The appendix is slightly dilated and filled with fluid measuring up to 1 cm. This is similar to previous exam November 2020. Early appendicitis cannot be excluded and correlation with clinical exam recommended.? Discharge Plan Discharge Clinical Impression: Diverticulitis Patient Disposition: Home, Self-Care Instructions: Diverticulitis (ED) Additional Instructions: I have sent 2 medications to her pharmacy to take for the next 10 days. If you develop a fever, increased abdominal pain, please return to the emergency department immediately. Otherwise, please follow-up with your PCP. Prescriptions: New metronidazole [Flagyl] 500 mg tablet 500 mg PO Q8H Qty: 20 RF: 0 ciprofloxacin HCl 500 mg tablet 500 mg PO Q12H Qty: 20 RF: 0 Interventions: ED Discharge Assessment Last Done: 05/15/21 12:23 Discharge Date/Time: 05/15/21 12:24 [facility] Past Medical History Medical History Abdominal pain Diverticulitis HTN (hypertension) Lyme disease Surgical History History of cholecystectomy History of hysterectomy Social History Social History Household Members: None Housing: House Alcohol intake: never Advance Directives: No service: No Current occupational status: retired
[2021-05-15] MEDS: iohexoL 350 MG/ML 100 ML INFUS..BTL IV (10:48)
== END 2021-05-15 12:24 | disposition home or self-care (01) ==
PROVIDERS: Emergency Provider Emergency Medicine Emergency Medical Services; PCP Pediatrics
DX: K57.32 Diverticulitis of large intestine without perforation or abscess without bleeding (principal); R10.32 Left lower quadrant pain; Z79.899 Other long term (current) drug therapy
CPT/HCPCS: 36415; 74177; 80053; 81001; 83690; 85025; 99283; 99284; Q9967

== ENCOUNTER 2021-07-19 08:37 | Emergency (ER) | payer MEDICARE, SELFPAY ==
[2021-07-19 08:56] VITALS: BP 169/59; PULSE 81; RESP 18; TEMP 36.6; O2SAT 98; BMI 23.0
--- NOTE | 2021-07-19 09:21 | ED_ITS ---
HPI - Abdominal Pain General Chief Complaint: Abdominal Pain Stated Complaint: lt side abd pain Time Seen by Provider: 07/19/21 09:20 Source: patient Mode of arrival: ambulatory Limitations: no limitations History of Present Illness HPI narrative: patient states increased diarrhea and now with explosive diarrhea with foul smell. No fever no abdominal pain, patient has bloating. Patient has been followed by her primary did not yet see her GI. Patient denies blood but has mucous. No recent antibiotics. She does have a history of cdiff. Pertinent past history: diverticulitis Onset (ago): week(s) Quality: cramping Associated symptoms: diarrhea Related Data Previous Rx's Medication Instructions Recorded ciprofloxacin HCl 500 mg tablet 500 mg PO Q12H #20 tab 05/15/21 metronidazole 500 mg tablet 500 mg PO Q8H #20 tab 05/15/21 (Flagyl) Allergies Allergy/AdvReac Type Severity Reaction Status Date / Time codeine [CODEINE] Allergy Unknown Vomiting Unverified 05/15/21 06:15 lisinopril [LISINOPRIL] Allergy Unknown MIGRAINE/HEAD Unverified 05/15/21 06:15 PRESSURE morphine [MORPHINE] Allergy Unknown ITCHING Unverified 05/15/21 06:15 Review of Systems Constitutional: Reports no additional constitutional complaints Eyes: Reports no additional eye complaints Denies dizziness Cardiovascular: Reports no additional cardiovascular complaints Respiratory: Reports as per HPI Gastrointestinal: Reports no additional gastrointestinal complaints Genitourinary: Reports no additional female genitourinary complaints Musculoskeletal: Reports no additional musculoskeletal complaints Skin/Breast: Denies rash Reports system reviewed and no additional complaints, except as documented, Denies dizziness and Denies Sensory deficit (Neuro) Psychiatric: Denies anxiety Physical Exam Vital Signs: Vital Signs: Last Vital Signs Temp 98 F 07/19/21 08:56 Pulse 72 07/19/21 13:36 Resp 16 07/19/21 13:36 BP 146/66 H 07/19/21 13:36 Pulse Ox 98 07/19/21 13:36 Body Mass Index 23.0 Const: General: healthy appearing Nutritional Appearance: average body habitus Orientation/consciousness: oriented to person and patient oriented x3 Limitations: no limitations HENMT: Head: Yes normal to inspection Ears: external ears normal General nose exam: Normal external nose present Mouth: Normal oral and palatal mucosa present and oropharynx normal Throat: Yes posterior oropharynx normal Eyes: General: appearance normal, both eyes and all related structures Neck: Other: supple Neck: Yes normal visual inspection Chest: Chest palpation & inspection: normal inspection of the chest Resp: Auscultation: clear to auscultation bilaterally Cardio: Jugular venous distension: no JVD Rate: regular rate Rhythm: regular rhythm Heart sounds: S1 normal heart sound present and S2 normal heart sound present GI: Inspection: Yes normal to inspection Palpation (GI): Soft to palpation, nontender and No hepatosplenomegaly present Auscultation: normal bowel sounds : General: Yes no CVA tenderness Back/Spine/Pelvis: Back: no CVA tenderness Skin: General skin exam: no rashes or lesions noted Neuro: General: oriented to person and patient oriented x3 Cranial nerves: Yes CN's II-XII intact bilaterally Motor exam (neuro): 5/5 motor strength present throughout Sensory Exam: No Sensory deficit (Neuro) Extrem: General: Yes normal to inspection Psych: Appearance: grossly normal Course Reevaluation(s) Reevaluation #1: labs normal, no fecal leukocytes, cdiff negative. Patient with chronic diarrhea will have her follow up with Dr. Lorenzo from GI Time: 13:46 [facility] - Abdominal Pain Lab Data Result diagrams: 07/19/21 09:49 07/19/21 09:49 Labs: Lab Results 07/19/21 07/19/21 07/19/21 Range/Units 09:49 09:49 11:10 WBC 4.9 (4.8-10.8) X10*3/uL RBC 3.93 L (4.20-5.50) X10*6/uL Hgb 12.3 (12.0-16.0) g/dl Hct 36.8 L (37.0-47.0) % MCV 93.6 (80.0-98.0) fL MCH 31.3 (27.0-33.0) pg MCHC 33.4 (31.0-35.0) g/dl RDW 13.1 (11.0-16.0) % Plt Count 188 (160-400) X10*3/uL MPV 8.1 L (9.4-12.3) fL Immature Gran % (Auto) 0.4 (0.0-0.4) % Neut % (Auto) 58.8 (45-73) % Lymph % (Auto) 29.0 (20-40) % [place] % (Auto) 10.2 (2-11) % Eos % (Auto) 1.0 (0-4) % Baso % (Auto) 0.6 (0-2) % Lymph # (Auto) 1.4 (1.2-4.9) X10*3/uL [place] # (Auto) 0.5 (0.1-1.2) X10*3/uL Eos # (Auto) 0.1 (0.0-0.4) X10*3/uL Baso # (Auto) 0.0 (0.0-0.2) X10*3/uL Abs Immat Gran (auto) 0.02 (0.00-0.03) X10*3/uL Absolute Neuts (auto) 2.9 (2.0-8.3) x10*3/uL Absolute Nucleated RBC 0.000 (0.0-0.012) X10*3/uL Nucleated RBC % (auto) 0.0 (0.0-0.2) /100WBC Sodium 141 (135-145) mmol/L Potassium 4.0 (3.3-5.1) mmol/L Chloride 108 (96-108) mmol/L Carbon Dioxide 27 (22-29) mmol/L Anion Gap 10 L (12-20) BUN 7 L (9-16) mg/dL Creatinine 0.80 (0.5-1.4) mg/dL Estim Creat Clear Calc 46.5 Estimated GFR > 60 Random Glucose 98 (60-115) mg/dL Calcium 9.6 (8.4-10.2) mg/dL Urine Color STRAW Urine Appearance CLEAR Urine pH 6.0 (5.0-8.0) Ur Specific [place] <= 1.005 (1.005-1.025) Urine Protein NEG (NEG-TRACE) MG/DL Urine Glucose (UA) NEG (NEG) MG/DL Urine Ketones NEG (NEG) MG/DL Urine Blood NEG (NEG) Urine Nitrite NEG (NEG) Ur Leukocyte Esterase NEG (NEG) Stool Leukocytes, Qual (NEGATIVE) C. difficile Tox B Gene (Negative) 07/19/21 07/19/21 07/19/21 Range/Units 12:18 12:18 12:51 WBC (4.8-10.8) X10*3/uL RBC (4.20-5.50) X10*6/uL Hgb (12.0-16.0) g/dl Hct (37.0-47.0) % MCV (80.0-98.0) fL MCH (27.0-33.0) pg MCHC (31.0-35.0) g/dl RDW (11.0-16.0) % Plt Count (160-400) X10*3/uL MPV (9.4-12.3) fL Immature Gran % (Auto) (0.0-0.4) % Neut % (Auto) (45-73) % Lymph % (Auto) (20-40) % [place] % (Auto) (2-11) % Eos % (Auto) (0-4) % Baso % (Auto) (0-2) % Lymph # (Auto) (1.2-4.9) X10*3/uL [place] # (Auto) (0.1-1.2) X10*3/uL Eos # (Auto) (0.0-0.4) X10*3/uL Baso # (Auto) (0.0-0.2) X10*3/uL Abs Immat Gran (auto) (0.00-0.03) X10*3/uL Absolute Neuts (auto) (2.0-8.3) x10*3/uL Absolute Nucleated RBC (0.0-0.012) X10*3/uL Nucleated RBC % (auto) (0.0-0.2) /100WBC Sodium (135-145) mmol/L Potassium (3.3-5.1) mmol/L Chloride (96-108) mmol/L Carbon Dioxide (22-29) mmol/L Anion Gap (12-20) BUN (9-16) mg/dL Creatinine (0.5-1.4) mg/dL Estim Creat Clear Calc Estimated GFR Random Glucose (60-115) mg/dL Calcium (8.4-10.2) mg/dL Urine Color Urine Appearance Urine pH (5.0-8.0) Ur Specific [place] (1.005-1.025) Urine Protein (NEG-TRACE) MG/DL Urine Glucose (UA) (NEG) MG/DL Urine Ketones (NEG) MG/DL Urine Blood (NEG) Urine Nitrite (NEG) Ur Leukocyte Esterase (NEG) Stool Leukocytes, Qual NEGATIVE Cancelled (NEGATIVE) C. difficile Tox B Gene NEGATIVE (Negative) Discharge Plan Discharge Clinical Impression: Diarrhea Qualifiers: Diarrhea type: unspecified type Qualified Code(s): R19.7 - Diarrhea, unspecified Patient Disposition: Home, Self-Care Instructions: Acute Diarrhea (ED) Additional Instructions: See Dr. Lorenzo as soon as possible Prescriptions: No Action metronidazole [Flagyl] 500 mg tablet 500 mg PO Q8H Qty: 20 RF: 0 ciprofloxacin HCl 500 mg tablet 500 mg PO Q12H Qty: 20 RF: 0 Referrals: Betty Bustos MD [Primary Care Provider] - 3 days [facility] Past Medical History Medical History Abdominal pain Diverticulitis HTN (hypertension) Lyme disease Surgical History History of cholecystectomy History of hysterectomy Social History Social History Household Members: None Housing: House Alcohol intake: never Patient Tobacco Use Status: Never used Tobacco Use of substances other than those prescribed or required for medical reasons: No Advance Directives: No service: No Current occupational status: retired
[2021-07-19 09:55] LABS: MANUAL DIFF FLAG NO
[2021-07-19 09:57] LABS: Basophils Percent Auto 0.6 % (0-2); Eosinophils Absolute Auto 0.1 X10*3/uL (0.0-0.4); Hematocrit 36.8 % (37.0-47.0); Hemoglobin 12.3 g/dl (12.0-16.0); Imm Gran Abs Auto 0.02 X10*3/uL (0.00-0.03); Imm Gran Pct Auto 0.4 % (0.0-0.4); Lymphocytes Absolute Auto 1.4 X10*3/uL (1.2-4.9); Mean Corpuscular HGB Conc 33.4 g/dl (31.0-35.0); Mean Corpuscular Hemoglobin 31.3 pg (27.0-33.0); Mean Corpuscular Volume 93.6 fL (80.0-98.0); Mean Platelet Volume 8.1 fL (9.4-12.3); Monocytes Absolute Auto 0.5 X10*3/uL (0.1-1.2); Monocytes Percent Auto 10.2 % (2-11); Neutrophils Absolute Auto 2.9 x10*3/uL (2.0-8.3); Neutrophils Percent Auto 58.8 % (45-73); Platelet Count 188 X10*3/uL (160-400); Red Blood Count 3.93 X10*6/uL (4.20-5.50); Red Cell Distribution Width 13.1 % (11.0-16.0); White Blood Count 4.9 X10*3/uL (4.8-10.8)
[2021-07-19 10:12] LABS: Anion Gap 10 (12-20); Blood Urea Nitrogen 7 mg/dL (9-16); Calcium 9.6 mg/dL (8.4-10.2); Carbon Dioxide 27 mmol/L (22-29); Chloride 108 mmol/L (96-108); Creatinine Clr Calc Pharmacy 46.5; Estimated Glomerular Filt Rate > 60; Glucose Random 98 mg/dL (60-115); Sodium 141 mmol/L (135-145)
[2021-07-19 11:07] VITALS: BP 140/59; PULSE 78; RESP 18; O2SAT 99
[2021-07-19 11:17] LABS: Appearance Urine CLEAR; Color Urine STRAW; Glucose Urine UA NEG (NEG); Leukocyte Esterase Urine NEG (NEG); Nitrite Urine NEG (NEG); Specific Gravity - Urine <= 1.005 (1.005-1.025); Urine Blood NEG (NEG); Urine Ketones NEG (NEG); Urine Protein NEG (NEG-TRACE)
[2021-07-19 13:12] LABS: Leukocytes Stool Qualitative NEGATIVE (NEGATIVE)
[2021-07-19 13:36] VITALS: BP 146/66; PULSE 72; RESP 16; O2SAT 98
[2021-07-19 13:42] LABS: CDiff Gene PCR NEGATIVE (Negative)
== END 2021-07-19 14:18 | disposition home or self-care (01) ==
PROVIDERS: Emergency Provider Emergency Medicine; PCP Pediatrics
DX: R19.7 Diarrhea, unspecified (principal); Z79.899 Other long term (current) drug therapy
CPT/HCPCS: 36415; 80048; 81003; 85025; 87045; 87046; 87493; 89055; 99284

== ENCOUNTER 2021-08-23 11:23 | Emergency (ER) | payer MEDICARE, SELFPAY ==
[2021-08-23 11:55] VITALS: BP 135/65; PULSE 82; RESP 16; TEMP 36.6; O2SAT 98; BMI 22.3
--- NOTE | 2021-08-23 13:59 | ED_ITS ---
HPI - Nausea/Vomiting/Diarrhea General Chief complaint: Nausea/Vomiting/Diarrhea Stated complaint: diarrhea Time Seen by Provider: 08/23/21 13:45 Source: patient Limitations: no limitations History of Present Illness HPI Narrative: This is a 75 years old female presented to the emergency department which a chief complaint of diarrhea x1 day, denies any vomiting any fever any chills, diarrhea is described as watery MD elicited complaint: diarrhea Onset (ago): day(s) (1) Description of vomiting: watery Associated nausea: Yes Associated abdominal pain: No Quality: cramping Exacerbating factors: none Relieving factors: none Related Data Previous Rx's Medication Instructions Recorded ciprofloxacin HCl 500 mg tablet 500 mg PO Q12H #20 tab 05/15/21 metronidazole 500 mg tablet 500 mg PO Q8H #20 tab 05/15/21 (Flagyl) metronidazole 500 mg tablet 500 mg PO BID 14 Days #28 tab 07/21/21 Allergies Allergy/AdvReac Type Severity Reaction Status Date / Time codeine [CODEINE] Allergy Unknown Vomiting Unverified 05/15/21 06:15 lisinopril [LISINOPRIL] Allergy Unknown MIGRAINE/HEAD Unverified 05/15/21 06:15 PRESSURE morphine [MORPHINE] Allergy Unknown ITCHING Unverified 05/15/21 06:15 Review of Systems Review of Systems: Yes all other systems are reviewed and are negative Constitutional: Constitutional: Denies fever(s) Cardiovascular: Cardiovascular: Reports no additional cardiovascular complaints, Reports painful fingertips, Denies chest pain, Denies chest pain at rest and Denies chest pain with activity Respiratory: Respiratory: Reports no additional respiratory complaints Gastrointestinal: Gastrointestinal: Reports nausea Neurologic: Reports system reviewed and no additional complaints, except as documented PMFSH Past Medical History Medical History Abdominal pain Diverticulitis HTN (hypertension) Lyme disease Surgical History History of cholecystectomy History of hysterectomy Social History Social History Household Members: None Housing: House Alcohol intake: never Patient Tobacco Use Status: Never used Tobacco Advance Directives: No Advance Directives Information Provided: Yes service: No Current occupational status: retired Physical Exam Vital Signs: Vital Signs: Last Vital Signs Temp 97.9 F 08/23/21 11:55 Pulse 82 08/23/21 11:55 Resp 16 08/23/21 11:55 BP 135/65 08/23/21 11:55 Pulse Ox 98 08/23/21 11:55 BMI result Body Mass Index 22.3 Const: General: cooperative Nutritional Appearance: average body habitus HENMT: Head: Yes normal to inspection General nose exam: Normal external nose present Face and sinus: Yes normal facial exam Mouth: Normal oral and palatal mucosa present Throat: Yes posterior oropharynx normal Neck: Neck: Yes normal visual inspection, Yes full ROM and Yes no ly mphadenopathy Thyroid: Thyroid normal Chest: Chest palpation & inspection: normal inspection of the chest Resp: Effort & Inspection: normal respiratory effort and able to speak in complete sentences Auscultation: clear to auscultation bilaterally Cardio: Jugular venous distension: no JVD Rate: regular rate Rhythm: regular rhythm GI: Inspection: Yes normal to inspection Palpation (GI): Soft to palpation, not firm, nontender and no guarding Skin: General skin exam: no rashes or lesions noted Rashes: no rashes Course Reevaluation(s) Reevaluation #1: Labs are within normal limit, electrolytes are normal, vital signs stable she has no fever she is not tachycardic and she is normotensive. I think she can be discharged home . I will give a requisition to bring back stools for c diff /wbc. She states she has been on flagyl in the past for diarrhea. MDM - Nausea/Vomiting/Diarrhea Lab Data Result diagrams: 08/23/21 14:22 08/23/21 14:22 Labs: Lab Results 08/23/21 08/23/21 Range/Units 14:22 14:22 WBC 7.3 (4.8-10.8) X10*3/uL RBC 3.94 L (4.20-5.50) X10*6/uL Hgb 12.4 (12.0-16.0) g/dl Hct 36.8 L (37.0-47.0) % MCV 93.4 (80.0-98.0) fL MCH 31.5 (27.0-33.0) pg MCHC 33.7 (31.0-35.0) g/dl RDW 12.9 (11.0-16.0) % Plt Count 180 (160-400) X10*3/uL MPV 8.6 L (9.4-12.3) fL Immature Gran % (Auto) 0.3 (0.0-0.4) % Neut % (Auto) 66.9 (45-73) % Lymph % (Auto) 23.4 (20-40) % [place] % (Auto) 8.1 (2-11) % Eos % (Auto) 1.2 (0-4) % Baso % (Auto) 0.1 (0-2) % Lymph # (Auto) 1.7 (1.2-4.9) X10*3/uL [place] # (Auto) 0.6 (0.1-1.2) X10*3/uL Eos # (Auto) 0.1 (0.0-0.4) X10*3/uL Baso # (Auto) 0.0 (0.0-0.2) X10*3/uL Abs Immat Gran (auto) 0.02 (0.00-0.03) X10*3/uL Absolute Neuts (auto) 4.8 (2.0-8.3) x10*3/uL Absolute Nucleated RBC 0.000 (0.0-0.012) X10*3/uL Nucleated RBC % (auto) 0.0 (0.0-0.2) /100WBC Sodium 141 (135-145) mmol/L Potassium 4.0 (3.3-5.1) mmol/L Chloride 106 (96-108) mmol/L Carbon Dioxide 29 (22-29) mmol/L Anion Gap 10 L (12-20) BUN 7 L (9-16) mg/dL Creatinine 0.77 (0.5-1.4) mg/dL Estim Creat Clear Calc 48.4 Estimated GFR > 60 Random Glucose 101 (60-115) mg/dL Calcium 9.6 (8.4-10.2) mg/dL Total Bilirubin 0.2 (0.0-1.0) mg/dL AST 23 (5-31) U/L ALT 19 (0-31) U/L Alkaline Phosphatase 76 (39-117) U/L Total Protein 7.2 (6.5-8.0) g/dL Albumin 4.3 (3.5-5.0) g/dL Discharge Plan Discharge Clinical Impression: Diarrhea Patient Disposition: Home, Self-Care Instructions: Acute Diarrhea (ED) Additional Instructions: Follow-up with your primary care physician, return if you worse, vomiting, fever. Bring back the stools to the labs so we could check for C diff Prescriptions: No Action metronidazole [Flagyl] 500 mg tablet 500 mg PO Q8H Qty: 20 RF: 0 ciprofloxacin HCl 500 mg tablet 500 mg PO Q12H Qty: 20 RF: 0 metronidazole 500 mg tablet 500 mg PO BID 14 Days Qty: 28 RF: 0 Referrals: Betty Bustos MD [Primary Care Provider] - 2 days
[2021-08-23 14:26] LABS: MANUAL DIFF FLAG NO
[2021-08-23 14:28] LABS: Basophils Percent Auto 0.1 % (0-2); Eosinophils Absolute Auto 0.1 X10*3/uL (0.0-0.4); Eosinophils Percent Auto 1.2 % (0-4); Hematocrit 36.8 % (37.0-47.0); Hemoglobin 12.4 g/dl (12.0-16.0); Imm Gran Abs Auto 0.02 X10*3/uL (0.00-0.03); Imm Gran Pct Auto 0.3 % (0.0-0.4); Lymphocytes Absolute Auto 1.7 X10*3/uL (1.2-4.9); Lymphocytes Percent Auto 23.4 % (20-40); Mean Corpuscular HGB Conc 33.7 g/dl (31.0-35.0); Mean Corpuscular Hemoglobin 31.5 pg (27.0-33.0); Mean Corpuscular Volume 93.4 fL (80.0-98.0); Mean Platelet Volume 8.6 fL (9.4-12.3); Monocytes Absolute Auto 0.6 X10*3/uL (0.1-1.2); Monocytes Percent Auto 8.1 % (2-11); Neutrophils Absolute Auto 4.8 x10*3/uL (2.0-8.3); Neutrophils Percent Auto 66.9 % (45-73); Platelet Count 180 X10*3/uL (160-400); Red Blood Count 3.94 X10*6/uL (4.20-5.50); Red Cell Distribution Width 12.9 % (11.0-16.0); White Blood Count 7.3 X10*3/uL (4.8-10.8)
[2021-08-23] MEDS: ondansetron HCL 4 MG/2 ML VIAL IVPUSH (14:39)
[2021-08-23] MEDS: 0.9 % Sodium Chloride 1,000 ML 999 ML IVCONT (14:39)
[2021-08-23 14:42] LABS: Alanine Aminotransferase 19 U/L (0-31); Albumin Level 4.3 g/dL (3.5-5.0); Alkaline Phosphatase 76 U/L (39-117); Anion Gap 10 (12-20); Aspartate Amino Transferase 23 U/L (5-31); Bilirubin Total 0.2 mg/dL (0.0-1.0); Blood Urea Nitrogen 7 mg/dL (9-16); Calcium 9.6 mg/dL (8.4-10.2); Carbon Dioxide 29 mmol/L (22-29); Chloride 106 mmol/L (96-108); Creatinine Clr Calc Pharmacy 48.4; Estimated Glomerular Filt Rate > 60; Glucose Random 101 mg/dL (60-115); Sodium 141 mmol/L (135-145); Total Protein 7.2 g/dL (6.5-8.0)
== END 2021-08-23 16:03 | disposition home or self-care (01) ==
PROVIDERS: Emergency Provider Emergency Medicine; PCP Pediatrics
DX: R19.7 Diarrhea, unspecified (principal); I10 Essential (primary) hypertension
CPT/HCPCS: 36415; 80053; 85025; 96361; 96374; 99282; 99284; J2405

== ENCOUNTER 2021-08-27 11:02 | Outpatient (REF) | payer MEDICARE, SELFPAY ==
[2021-08-27 12:16] LABS: Leukocytes Stool Qualitative NEGATIVE (NEGATIVE)
[2021-08-27 12:54] LABS: CDiff Gene PCR NEGATIVE (Negative)
== END 2021-08-27 11:03 | disposition home or self-care (01) ==
LOC: HO.LNP 11:02
PROVIDERS: Referring Provider Internal Medicine; Visit Provider Emergency Medicine
DX: R19.7 Diarrhea, unspecified (principal)
CPT/HCPCS: 87015; 87177; 87209; 87272; 87493; 89055

== ENCOUNTER 2021-09-08 12:51 | Outpatient (REF) | payer MEDICARE, SELFPAY ==
[2021-09-10 13:41] LABS: Immunoglobulin A 236 mg/dL (70-320)
[2021-09-13 14:57] LABS: Gliadin Deamidated IgA Ab 5.2 U/mL; Gliadin Deamidated IgG Ab <1.0 U/mL; Transglutaminase Ab IgG 1.4 U/mL; Transglutaminase IgA <1.0 U/mL
[2021-09-14 13:31] LABS: Endomysial IgA Antibody Negative (Negative)
== END 2021-09-08 12:52 | disposition home or self-care (01) ==
LOC: HO.LAB 12:51
PROVIDERS: PCP Pediatrics; Visit Provider Internal Medicine
DX: R19.7 Diarrhea, unspecified (principal)
CPT/HCPCS: 36415; 82784; 86231; 86258; 86364

== ENCOUNTER 2021-10-08 10:11 | Day surgery (SDC) | payer MEDICARE, SELFPAY ==
[2021-10-04 11:00] VITALS: BMI 22.4
--- NOTE | 2021-10-07 08:59 | HO.ANESPROP2 ---
Documented by User: Sandra Stern NP 10/07/21 09:00 HPI - Anesthesia Eval Consult details Narrative: 75yo F for Colonoscopy [facility] Past Medical History Medical History (Updated 10/08/21 @ 10:50 by India Huston, LORRIE) Abdominal pain Diverticulitis HTN (hypertension) IBS (irritable bowel syndrome) Lyme disease Rectocele Sleep apnea Urethral prolapse Surgical History Surgical History H/O colonoscopy History of cholecystectomy History of esophagogastroduodenoscopy (EGD) History of hysterectomy Hx of nasal septoplasty Social History Social History Household Members: None Housing: House Alcohol intake: never Patient Tobacco Use Status: Never used Tobacco Use of substances other than those prescribed or required for medical reasons: No Are you DNR?: No Advance Directives: No Advance Directives Information Provided: Yes Patient : No (hysterectomy) service: No Current occupational status: retired Meds Allergies Allergy/AdvReac Type Severity Reaction Status Date / Time tetanus and diphtheria Allergy Severe Confusion Verified 10/08/21 10:49 toxoids codeine [CODEINE] Allergy Intermediate Vomiting Verified 10/04/21 10:59 lisinopril [LISINOPRIL] Allergy Intermediate MIGRAINE/HEAD Verified 10/04/21 10:59 PRESSURE morphine [MORPHINE] Allergy Intermediate ITCHING Verified 10/04/21 10:59 Home Medications Medication Instructions Recorded Confirmed Last Taken Type estradiol (Estrace) 1 appful VAGINAL DAILY 10/04/21 10/04/21 Unknown History famotidine 20 mg tablet (Pepcid) 20 mg PO BEDTIME 10/04/21 10/04/21 Unknown History irbesartan 300 mg tablet 1 tab PO DAILY 10/04/21 10/04/21 Unknown History lorazepam 0.5 mg tablet 1 tab PO BID PRN 10/04/21 10/04/21 Unknown History omega 0-eeb-iaf-fish oil 1,000 mg 2 cap PO DAILY 10/04/21 10/04/21 Unknown History (120 mg-180 mg) capsule (Fish Oil) Exam Exam Date and Time: October 07, 2021 0859 Height,Weight and Vital Signs: Height 5 ft 1.5 in Weight 54.885 kg Assessment and Plan Assessment Anesthesia Assessment: Chart Reviewed Documented by User: Mayo Escobar MD 10/08/21 11:54 HPI - Anesthesia Eval Consult details Narrative: 75yo F for Colonoscopy after the prep yesterday patient got dirrhea and dehydrated , went to the Ed , workup negative . Attributed to dehydration , IV fluids given in the ED . KYRIE on CPA, LYME disease , diverticulitis recently . [facility] Past Medical History Medical History (Updated 10/08/21 @ 10:50 by India Huston, RN) Abdominal pain Diverticulitis HTN (hypertension) IBS (irritable bowel syndrome) Lyme disease Rectocele Sleep apnea Urethral prolapse Functional capacity: independent ambulation Family History Family history of problems with anesthesia: Yes (Delayed emergence , mother ) Surgical History Surgical History H/O colonoscopy History of cholecystectomy History of esophagogastroduodenoscopy (EGD) History of hysterectomy Hx of nasal septoplasty History of Problems with Anesthesia: No Social History Social History Household Members: None Housing: House Alcohol intake: never Patient Tobacco Use Status: Never used Tobacco Use of substances other than those prescribed or required for medical reasons: No Are you DNR?: No Advance Directives: No Advance Directives Information Provided: Yes Patient : No (hysterectomy) service: No Current occupational status: retired Meds Allergies Allergy/AdvReac Type Severity Reaction Status Date / Time tetanus and diphtheria Allergy Severe Confusion Verified 10/08/21 10:49 toxoids codeine [CODEINE] Allergy Intermediate Vomiting Verified 10/04/21 10:59 lisinopril [LISINOPRIL] Allergy Intermediate MIGRAINE/HEAD Verified 10/04/21 10:59 PRESSURE morphine [MORPHINE] Allergy Intermediate ITCHING Verified 10/04/21 10:59 Home Medications Medication Instructions Recorded Confirmed Last Taken Type estradiol (Estrace) 1 appful VAGINAL DAILY 02/14/22 02/14/22 Unknown History famotidine 20 mg tablet (Pepcid) 20 mg PO BEDTIME 10/04/21 10/04/21 Unknown History irbesartan 300 mg tablet 1 tab PO DAILY 10/04/21 10/04/21 Unknown History lorazepam 0.5 mg tablet 1 tab PO BID PRN 10/04/21 10/04/21 Unknown History omega 2-jme-siq-fish oil 1,000 mg 2 cap PO DAILY 10/04/21 10/04/21 Unknown History (120 mg-180 mg) capsule (Fish Oil) Exam Airway Mallampati Class: III Denture: Upper Loose/Missing/Broken Teeth: Yes (Crowns ) Heart: rrr Lungs: bl breath sounds Assessment and Plan Assessment Anesthesia Assessment: Anesthesia Plan Discussed Final Anesthetic Review Family History of Problems with Anesthesia: Yes (Delayed emergence , mother ) History of Problems with Anesthesia: No NPO: Yes ASA Class: III Final Preanesthetic Review: Meds/Allgs Chart Reviewed, Consent Obtained/Reviewed and Anes Risks/Benef Reviewed Patient Risk: High Procedure Risk: Intermediate Anesthetic Plan Anesthetic Plan: MAC: Disposition: Standard PACU
[2021-10-08 10:46] VITALS: BP 132/75; PULSE 102; RESP 18; TEMP 36.8; O2SAT 98
[2021-10-08] MEDS: Lactated Ringers 1,000 ML 100 ML IVCONT (10:59)
[2021-10-08 11:51] VITALS: BP 120/55; PULSE 80; RESP 14; TEMP 36.6; O2SAT 98
--- NOTE | 2021-10-08 11:53 | P.BOP_ITS ---
Brief Operative Note Date of Service: 10/08/21 Pre-op diagnosis: Screening Post-op diagnosis: other (Diverticulosis, R/O microscopic colitis) Procedure: Colonoscopy to the cecum and TI with biopsies Surgeon: Don Lorenzo Anesthesia: MAC Was an Clerk Supervisor used for this Procedure?: No Estimated blood loss (mL): 2.0 Pathology: other (A. Ascending colon B. Descending colon) Condition: stable Disposition: PACU
[2021-10-08 12:06] VITALS: BP 139/64; PULSE 80; RESP 16; TEMP 36.6; O2SAT 99
--- NOTE | 2021-10-08 12:40 | OP_ITS ---
SURGEON: Don Lorenzo MD INDICATIONS: The patient presents for evaluation of colorectal cancer screening and irritable bowel syndrome. Full consent was obtained from her for this, including risks of bleeding and perforation. PREOPERATIVE DIAGNOSIS: POSTOPERATIVE DIAGNOSIS: PROCEDURE PERFORMED: Colonoscopy to cecum and terminal ileum with biopsies. ESTIMATED BLOOD LOSS: COMPLICATIONS: ANESTHESIA: Monitored anesthesia care. ASSISTANTS: SPECIMENS: PREOPERATIVE DIAGNOSES: Colorectal cancer screening and irritable bowel syndrome. POSTOPERATIVE DIAGNOSES: Colorectal cancer screening, irritable bowel syndrome, diverticulosis, rule out microscopic colitis, internal hemorrhoids. DESCRIPTION OF PROCEDURE: The patient was placed in the left lateral decubitus position. The digital rectal exam revealed no abnormalities. The Olympus video pediatric colonoscope was entered into the rectum and advanced easily to the cecum. Once in the cecum, I did identify normal-appearing cecal pouch with appendiceal orifice and a normal-appearing ileocecal valve. The terminal ileum was cannulated and appeared normal. The scope was withdrawn back from the colon. The entire cecum and ileocecal valve appeared normal. The scope was slowly withdrawn assessing all mucosal surfaces carefully. Preparation was excellent. I did not visualize any sign of polyps, colitis, nor angiodysplasia. There was a mild amount of sigmoid diverticulosis. I did obtain random biopsies in the ascending and descending colon. In the rectum, scope was retroflexed visualizing some internal hemorrhoids, but no other pathology. The rectal mucosa appeared normal. The scope was straightened and withdrawn from the patient. She tolerated the procedure well and was returned to the recovery area in stable condition. IMPRESSION: 1. Diverticulosis. 2. Internal hemorrhoids. 3. Rule out microscopic colitis. PLAN: The results of the biopsies will be checked. Given today's otherwise negative exam and her age, I do not think she will need any further colonoscopies for screening purposes. She will continue her dicyclomine and fiber in regard to the underlying irritable bowel syndrome. She will see me on a p.r.n. basis. MD STEVEN Tiwari/YVETTE / [phone] MTDD
== END 2021-10-08 12:50 | disposition home or self-care (01) ==
PROVIDERS: PCP Pediatrics; Visit Provider Internal Medicine
PROC: 0DJD8ZZ Inspection of Lower Intestinal Tract, Via Natural or Artificial Opening Endoscopic (ICD-10-PCS; CPT 45378; principal; 2021-10-08 11:20)
DX: Z12.11 Encounter for screening for malignant neoplasm of colon (principal); K57.30 Diverticulosis of large intestine without perforation or abscess without bleeding; K64.8 Other hemorrhoids; K58.1 Irritable bowel syndrome with constipation; K21.9 Gastro-esophageal reflux disease without esophagitis; I10 Essential (primary) hypertension; A69.20 Lyme disease, unspecified; Z79.899 Other long term (current) drug therapy; Z88.8 Allergy status to other drugs, medicaments and biological substances; Z88.7 Allergy status to serum and vaccine; Z90.49 Acquired absence of other specified parts of digestive tract
CPT/HCPCS: 45380; 88305; J2250

== ENCOUNTER 2022-01-25 16:07 | Emergency (ER) | payer MEDICARE, SELFPAY ==
--- NOTE | ~2022-01-25 | CT_ITS ---
EXAMINATION: CT ABDOMEN AND PELVIS WITHOUT CONTRAST CLINICAL INFORMATION: Left-sided abdominal pain. Question diverticulitis. COMPARISON: Multiple previous abdomen and pelvic CT scans with the last abdomen and pelvic CT scan of 05/15/2021. TECHNIQUE: Multidetector volumetric imaging was performed from the superior aspect of the liver through the pubic symphysis. Sagittal and coronal reformatted images were obtained on the technologist's workstation. This CT examination was performed using dose optimization techniques as appropriate, variously including the following: *Automated exposure control. *Adjustment of mA and/or kV according to patient size (this includes techniques or standardized protocols for targeted exams where dose is matched to indication/reason for exam; i.e. extremities or head). *Use of iterative reconstruction technique. DLP: 392 mGy-cm FINDINGS: LUNG BASES: A 0.2 cm calcified granuloma is noted at the right lung base laterally (series 4 image 71). The lung bases are otherwise unremarkable. No pleural or pericardial effusions. LIVER, GALLBLADDER, AND BILIARY TREE: The liver is normal in size, shape, and attenuation. No focal hepatic lesion or biliary ductal dilatation is present. The gallbladder is surgically absent. Common bile duct is in upper limits of normal for caliber measuring 0.7 cm. No focal filling defect is noted in the common bile duct. PANCREAS: Unremarkable. SPLEEN: Unremarkable. ADRENAL GLANDS: Unremarkable. KIDNEYS AND URETERS: The kidneys are normal in size, shape, and attenuation. No hydronephrosis, hydroureter, or calculi seen. No perinephric stranding. BLADDER: Unremarkable. GASTROINTESTINAL TRACT: The stomach is decompressed. No abnormal small bowel dilatation. An appendix is slightly plump in appearance measuring 0.7 cm in maximum diameter, previously 0.9 cm (05/15/2021). However there is no evidence of pericecal appendiceal inflammatory changes. No evidence of pericecal inflammatory changes. The colon is normal in caliber. Diffuse colonic diverticulosis is noted. Question subtle fat stranding around the small portion of the distal descending colon in the upper pelvis. Otherwise, there is no evidence of colonic wall thickening or pericolic fat stranding. Nhywyndv-re-vrmif stool burden is noted in the colon. ABDOMINAL WALL: No significant hernia is appreciated. LYMPH NODES: No evidence of pathologically enlarged lymph nodes. VASCULAR: The aortoiliac vessels are normal in caliber. Scattered [id number] calcific atherosclerosis of the aortoiliac vessels. PELVIC VISCERA: Uterus is not seen, likely surgically absent. No adnexal mass. Trace volume air in the vaginal cuff is likely external in origin. PERITONEAL CAVITY: No evidence of free intraperitoneal air or fluid. OSSEOUS STRUCTURES: No acute or significant osseous abnormality is noted. Moderate disc space narrowing is seen at L2-L3 level. Mild grade 1 anterolisthesis of L3 over L4. Moderate disc space narrowing at L4-L5. Overall stable appearance of the osseous structures compared to previous CTs. CT/CT abdomen pelvis wo con IMPRESSION: Diffuse colonic diverticulosis. Probable subtle pericolic fat stranding along the small portion of the distalmost descending colon. In the appropriate clinical settings, findings may raise possibility of very early acute diverticulitis. No evidence of focal diverticular perforation or peridiverticular abscess collection. Wocfaeaq-vl-nnkij stool burden in the colon. Fleischner guidelines were followed.
[2022-01-25 16:15] VITALS: BP 161/77; PULSE 80; RESP 18; TEMP 36.9; O2SAT 100; BMI 23.3
[2022-01-25 16:58] LABS: MANUAL DIFF FLAG NO
[2022-01-25 17:00] LABS: Basophils Percent Auto 0.9 % (0-2); Eosinophils Absolute Auto 0.3 X10*3/uL (0.0-0.4); Eosinophils Percent Auto 7.1 % (0-4); Imm Gran Abs Auto 0.01 X10*3/uL (0.00-0.03); Imm Gran Pct Auto 0.2 % (0.0-0.4); Lymphocytes Absolute Auto 1.1 X10*3/uL (1.2-4.9); Lymphocytes Percent Auto 24.4 % (20-40); Mean Corpuscular HGB Conc 34.3 g/dl (31.0-35.0); Mean Corpuscular Hemoglobin 31.1 pg (27.0-33.0); Mean Corpuscular Volume 90.7 fL (80.0-98.0); Mean Platelet Volume 8.2 fL (9.4-12.3); Monocytes Absolute Auto 0.5 X10*3/uL (0.1-1.2); Monocytes Percent Auto 10.6 % (2-11); Neutrophils Absolute Auto 2.6 x10*3/uL (2.0-8.3); Neutrophils Percent Auto 56.8 % (45-73); Platelet Count 170 X10*3/uL (160-400); Red Blood Count 3.86 X10*6/uL (4.20-5.50); Red Cell Distribution Width 12.8 % (11.0-16.0); White Blood Count 4.6 X10*3/uL (4.8-10.8)
[2022-01-25 17:02] LABS: Appearance Urine CLEAR; Color Urine STRAW; Glucose Urine UA NEG (NEG); Leukocyte Esterase Urine NEG (NEG); Nitrite Urine NEG (NEG); Specific Gravity - Urine <= 1.005 (1.005-1.025); Urine Blood NEG (NEG); Urine Ketones NEG (NEG); Urine Protein NEG (NEG-TRACE)
[2022-01-25 17:16] LABS: Alanine Aminotransferase 20 U/L (0-31); Albumin Level 4.3 g/dL (3.5-5.0); Alkaline Phosphatase 78 U/L (39-117); Anion Gap 11 (12-20); Aspartate Amino Transferase 26 U/L (5-31); Bilirubin Total 0.6 mg/dL (0.0-1.0); Blood Urea Nitrogen 10 mg/dL (9-16); Calcium 9.1 mg/dL (8.4-10.2); Carbon Dioxide 26 mmol/L (22-29); Chloride 100 mmol/L (96-108); Creatinine Clr Calc Pharmacy 45.8; Estimated Glomerular Filt Rate > 60; Glucose Random 109 mg/dL (60-115); Potassium 3.9 mmol/L (3.3-5.1); Sodium 133 mmol/L (135-145); Total Protein 7.2 g/dL (6.5-8.0)
--- NOTE | 2022-01-25 18:45 | ECG_ITS ---
Test Reason : ABDOMINAL PAIN Blood Pressure : / mmHG Vent. Rate : 075 BPM Atrial Rate : 075 BPM P-R Int : 172 ms QRS Dur : 088 ms QT Int : 406 ms P-R-T Axes : 023 -12 051 degrees QTc Int : 453 ms Normal sinus rhythm Normal ECG When compared with ECG of 09-MAY-2013 00:35, No significant change was found Referred By: Jim Foley Electronically Signed By:PETERSON MORA
--- NOTE | 2022-01-25 18:51 | ED.ABDPAIN ---
HPI - Abdominal Pain General Chief Complaint: Abdominal Pain <LATESHA Weber Last Filed: 01/26/22 01:07> Stated Complaint: pain left side/history of diverticulosis <LATESHA Weber Last Filed: 01/26/22 01:07> Time Seen by Provider: 01/25/22 18:39 <LATESHA Weber Last Filed: 01/26/22 01:07> Source: patient <LATESHA Weber Last Filed: 01/26/22 01:07> Mode of arrival: ambulatory <LATESHA Weber Last Filed: 01/26/22 01:07> Limitations: no limitations <LATESHA Weber Last Filed: 01/26/22 01:07> History of Present Illness HPI narrative: 76 yold male with pmh of diverticulitis presents to the ED for left lower quadrant abdominal pain with one episode of blood in stool. Patient deneis any chest pain, nausea, emesis, fever, chills, flank pain, dysuria, heamturia, dizziness, or headache. <LATESHA Weber Last Filed: 01/26/22 01:07> Related Data Home Medications: Home Medications Medication Instructions Recorded Confirmed estradiol (Estrace) 1 appful vaginal DAILY 10/04/21 10/04/21 famotidine 20 mg tablet (Pepcid) 20 mg PO BEDTIME 10/04/21 10/04/21 irbesartan 300 mg tablet 1 tab PO DAILY 10/04/21 10/04/21 lorazepam 0.5 mg tablet 1 tab PO BID PRN anxiety 10/04/21 10/04/21 omega 8-wmf-cyp-fish oil 1,000 mg 2 cap PO DAILY 10/04/21 10/04/21 (120 mg-180 mg) capsule (Fish Oil) Previous Rx's Medication Instructions Recorded ciprofloxacin HCl 500 mg tablet 500 mg PO Q12H #20 tabs 05/15/21 metronidazole 500 mg tablet 500 mg PO Q8H #20 tabs 05/15/21 (Flagyl) metronidazole 500 mg tablet 500 mg PO BID 14 days #28 tabs 07/21/21 levofloxacin 750 mg tablet 750 mg PO DAILY 5 days #5 tabs 01/25/22 metronidazole 500 mg tablet 500 mg PO Q12H 7 days #14 tabs 01/25/22 amoxicillin 875 mg-potassium 1 tab PO BID 10 days #20 tabs 01/26/22 clavulanate 125 mg tablet <LATESHA Weber - Last Filed: 01/26/22 01:07> Allergies/Adverse Reactions: Allergies Allergy/AdvReac Type Severity Reaction Status Date / Time tetanus and diphtheria Allergy Severe Confusion Verified 01/25/22 16:15 toxoids codeine [CODEINE] Allergy Intermediate Vomiting Verified 01/25/22 16:15 lisinopril [LISINOPRIL] Allergy Intermediate MIGRAINE/HEAD Verified 01/25/22 16:15 PRESSURE morphine [MORPHINE] Allergy Intermediate ITCHING Verified 01/25/22 16:15 <LATESHA Weber - Last Filed: 01/26/22 01:07> Review of Systems Review of Systems LLQ pain. One episode of blood. <LATESHA Weber - Last Filed: 01/26/22 01:07> Yes all other systems are reviewed and are negative <LATESHA Weber - Last Filed: 01/26/22 01:07> [facility] Past Medical History Medical History: Medical History (Updated 01/26/22 @ 00:01 by Laurel Travis) Abdominal pain Diverticulitis HTN (hypertension) IBS (irritable bowel syndrome) Lyme disease Rectocele Sleep apnea Urethral prolapse <LATESHA Weber - Last Filed: 01/26/22 01:07> Surgical History: Surgical History H/O colonoscopy History of cholecystectomy History of esophagogastroduodenoscopy (EGD) History of hysterectomy Hx of nasal septoplasty <LATESHA Weber - Last Filed: 01/26/22 01:07> Social History Social History: Social History Household Members: None Housing: House Alcohol intake: never Patient Tobacco Use Status: Never used Tobacco Use of substances other than those prescribed or required for medical reasons: No Advance Directives: Yes Advance Directives Information Provided: No Advance Directives on File: No service: No Current occupational status: retired <LATESHA Weber - Last Filed: 01/26/22 01:07> Physical Exam ED Vital Signs: Vital Signs - 24 hr 01/25/22 16:15 01/25/22 20:09 Temperature 98.5 F 99 F Pulse Rate 80 76 Respiratory Rate 18 18 Blood Pressure 161/77 H 143/62 H Pulse Oximetry 100 97 Oxygen Delivery Method Room Air BMI result Body Mass Index 23.3 <LATESHA Weber Last Filed: 01/26/22 01:07> Vital Signs - 24 hr 01/25/22 16:15 01/25/22 20:09 Temperature 98.5 F 99 F Pulse Rate 80 76 Respiratory Rate 18 18 Blood Pressure 161/77 H 143/62 H Pulse Oximetry 100 97 Oxygen Delivery Method Room Air BMI result Body Mass Index 23.3 <LATESHA Jordan Last Filed: 01/26/22 12:11> Const General: cooperative, healthy appearing, comfortable, no acute distress, well developed, alert, awake and Physically active <LATESHA Weber Last Filed: 01/26/22 01:07> Orientation/consciousness: oriented to person, oriented to place, oriented to time and patient oriented x3 <LATESHA Weber Last Filed: 01/26/22 01:07> HENMT Head: Yes normal to inspection, Yes No palpable skull fracture present, Yes normocephalic, Yes atraumatic and No abrasion <LATESHA Weber Last Filed: 01/26/22 01:07> Eyes General: appearance normal, both eyes and all related structures <LATESHA Weber Last Filed: 01/26/22 01:07> Neck Neck: Yes normal visual inspection, Yes full ROM, Yes no lymphadenopathy, Yes no meningeal signs, Yes trachea midline, Yes supple, No anterior neck swelling and No tender <LATESHA Weber Last Filed: 01/26/22 01:07> Chest Chest palpation & inspection: normal inspection of the chest and normal palpation of entire chest wall <LATESHA Weber Last Filed: 01/26/22 01:07> Resp Effort & Inspection: normal respiratory effort and able to speak in complete sentences <LATESHA Weber Last Filed: 01/26/22 01:07> Auscultation: clear to auscultation bilaterally <LATESHA Weber Last Filed: 01/26/22 01:07> Cardio Jugular venous distension: no JVD <LATESHA Weber Last Filed: 01/26/22 01:07> Heart sounds: S1 normal heart sound present and S2 normal heart sound present <LATESHA Weber Last Filed: 01/26/22 01:07> GI Other: rectal exam negative for frankl blood, black stool, or melena. Stool is brown <LATESHA Weber Last Filed: 01/26/22 01:07> Inspection: Yes normal to inspection and No abdominal wall ecchymosis <LATESHA Weber Last Filed: 01/26/22 01:07> Palpation (GI): Soft to palpation, not firm, Tenderness to palpation present (GI) in the epigastrum and in the LLQ, no guarding and not rigid <LATESHA Weber Last Filed: 01/26/22 01:07> Rectal Exam - Female: visual inspection normal and normal sphincter tone <LATESHA Weber Last Filed: 01/26/22 01:07> General: No CVA tenderness and Yes no CVA tenderness <LATESHA Weber Last Filed: 01/26/22 01:07> Back/Spine/Pelvis Back: no CVA tenderness, No CVA tenderness and No back tenderness <LATESHA Weber Last Filed: 01/26/22 01:07> Skin General skin exam: no rashes or lesions noted and elasticity normal <LATESHA Weber Last Filed: 01/26/22 01:07> Neuro General: oriented to person, oriented to place, oriented to time, patient oriented x3, gait normal, no meningeal signs and CN's II-XI intact bilaterally <LATESHA Weber Last Filed: 01/26/22 01:07> Cranial nerves: Yes CN's II-XII intact bilaterally <LATESHA Weber Last Filed: 01/26/22 01:07> Extrem General: Yes normal to inspection and Yes full ROM <LATESHA Weber Last Filed: 01/26/22 01:07> Psych Appearance: grossly normal, well kempt and not disheveled <LATESHA Weber Last Filed: 01/26/22 01:07> Course Course Course Narrative: labs ordered. EKG and troponin added due to epigastric pain. UA ordered. <LATESHA Weber Last Filed: 01/26/22 01:07> Reevaluation(s) Reevaluation #1: LAbs normal and EKG negative STEMI. UA normal. Abdominal CT scan ordered <LATESHA Weber Last Filed: 01/26/22 01:07> Time: 19:36 <LATESHA Weber Last Filed: 01/26/22 01:07> Reevaluation #2: CT scan shows diverticulitis. Will discharge with antiobitcs. <LATESHA Weber Last Filed: 01/26/22 01:07> Time: 21:10 <LATESHA Weber Last Filed: 01/26/22 01:07> Reevaluation #3: Kathrine Mares 01/26/22. 12:08, patient called, complaining of bilateral leg pain, like a burning in her legs. Levaquin can cause arthralgias, will DC Levaquin and metronidazole and start patient on Augmentin instead. CT scan shows only mild diverticulitis, I think this antibiotic regime will be adequate. Called patient and told her the plan. <LATESHA Jordan Last Filed: 01/26/22 12:11> MDM - Abdominal Pain MDM Narrative Medical decision making narrative: Diveritculitis <LATESHA Weber Last Filed: 01/26/22 01:07> Lab Data Result diagrams: : 01/25/22 16:53 01/25/22 16:53 <LATESHA Weber Last Filed: 01/26/22 01:07> Labs: Lab Results 01/25/22 01/25/22 01/25/22 Range/Units 16:53 16:53 16:53 WBC 4.6 L (4.8-10.8) X10*3/uL RBC 3.86 L (4.20-5.50) X10*6/uL Hgb 12.0 (12.0-16.0) g/dl Hct 35.0 L (37.0-47.0) % MCV 90.7 (80.0-98.0) fL MCH 31.1 (27.0-33.0) pg MCHC 34.3 (31.0-35.0) g/dl RDW 12.8 (11.0-16.0) % Plt Count 170 (160-400) X10*3/uL MPV 8.2 L (9.4-12.3) fL Immature Gran % (Auto) 0.2 (0.0-0.4) % Neut % (Auto) 56.8 (45-73) % Lymph % (Auto) 24.4 (20-40) % [place] % (Auto) 10.6 (2-11) % Eos % (Auto) 7.1 H (0-4) % Baso % (Auto) 0.9 (0-2) % Lymph # (Auto) 1.1 L (1.2-4.9) X10*3/uL [place] # (Auto) 0.5 (0.1-1.2) X10*3/uL Eos # (Auto) 0.3 (0.0-0.4) X10*3/uL Baso # (Auto) 0.0 (0.0-0.2) X10*3/uL Abs Immat Gran (auto) 0.01 (0.00-0.03) X10*3/uL Absolute Neuts (auto) 2.6 (2.0-8.3) x10*3/uL Absolute Nucleated RBC 0.000 (0.0-0.012) X10*3/uL Nucleated RBC % (auto) 0.0 (0.0-0.2) /100WBC PT (9.9-13.0) SEC INR (0.9-1.1) APTT (24.1-38.0) SEC Sodium 133 L (135-145) mmol/L Potassium 3.9 (3.3-5.1) mmol/L Chloride 100 (96-108) mmol/L Carbon Dioxide 26 (22-29) mmol/L Anion Gap 11 L (12-20) BUN 10 (9-16) mg/dL Creatinine 0.80 (0.5-1.4) mg/dL Estim Creat Clear Calc 45.8 Estimated GFR > 60 Random Glucose 109 (60-115) mg/dL Calcium 9.1 (8.4-10.2) mg/dL Total Bilirubin 0.6 (0.0-1.0) mg/dL AST 26 (5-31) U/L ALT 20 (0-31) U/L Alkaline Phosphatase 78 (39-117) U/L Troponin I High Sens (<3.5-17.0) ng/L Total Protein 7.2 (6.5-8.0) g/dL Albumin 4.3 (3.5-5.0) g/dL Urine Color STRAW Urine Appearance CLEAR Urine pH 7.0 (5.0-8.0) Ur Specific [place] <= 1.005 (1.005-1.025) Urine Protein NEG (NEG-TRACE) MG/DL Urine Glucose (UA) NEG (NEG) MG/DL Urine Ketones NEG (NEG) MG/DL Urine Blood NEG (NEG) Urine Nitrite NEG (NEG) Ur Leukocyte Esterase NEG (NEG) 01/25/22 01/25/22 Range/Units 19:34 19:34 WBC (4.8-10.8) X10*3/uL RBC (4.20-5.50) X10*6/uL Hgb (12.0-16.0) g/dl Hct (37.0-47.0) % MCV (80.0-98.0) fL MCH (27.0-33.0) pg MCHC (31.0-35.0) g/dl RDW (11.0-16.0) % Plt Count (160-400) X10*3/uL MPV (9.4-12.3) fL Immature Gran % (Auto) (0.0-0.4) % Neut % (Auto) (45-73) % Lymph % (Auto) (20-40) % [place] % (Auto) (2-11) % Eos % (Auto) (0-4) % Baso % (Auto) (0-2) % Lymph # (Auto) (1.2-4.9) X10*3/uL [place] # (Auto) (0.1-1.2) X10*3/uL Eos # (Auto) (0.0-0.4) X10*3/uL Baso # (Auto) (0.0-0.2) X10*3/uL Abs Immat Gran (auto) (0.00-0.03) X10*3/uL Absolute Neuts (auto) (2.0-8.3) x10*3/uL Absolute Nucleated RBC (0.0-0.012) X10*3/uL Nucleated RBC % (auto) (0.0-0.2) /100WBC PT 11.1 (9.9-13.0) SEC INR 1.0 (0.9-1.1) APTT 30.4 (24.1-38.0) SEC Sodium (135-145) mmol/L Potassium (3.3-5.1) mmol/L Chloride (96-108) mmol/L Carbon Dioxide (22-29) mmol/L Anion Gap (12-20) BUN (9-16) mg/dL Creatinine (0.5-1.4) mg/dL Estim Creat Clear Calc Estimated GFR Random Glucose (60-115) mg/dL Calcium (8.4-10.2) mg/dL Total Bilirubin (0.0-1.0) mg/dL AST (5-31) U/L ALT (0-31) U/L Alkaline Phosphatase (39-117) U/L Troponin I High Sens < 3.5 (<3.5-17.0) ng/L Total Protein (6.5-8.0) g/dL Albumin (3.5-5.0) g/dL Urine Color Urine Appearance Urine pH (5.0-8.0) Ur Specific [place] (1.005-1.025) Urine Protein (NEG-TRACE) MG/DL Urine Glucose (UA) (NEG) MG/DL Urine Ketones (NEG) MG/DL Urine Blood (NEG) Urine Nitrite (NEG) Ur Leukocyte Esterase (NEG) <LATESHA Weber - Last Filed: 01/26/22 01:07> Lab Results 01/25/22 01/25/22 01/25/22 Range/Units 16:53 16:53 16:53 WBC 4.6 L (4.8-10.8) X10*3/uL RBC 3.86 L (4.20-5.50) X10*6/uL Hgb 12.0 (12.0-16.0) g/dl Hct 35.0 L (37.0-47.0) % MCV 90.7 (80.0-98.0) fL MCH 31.1 (27.0-33.0) pg MCHC 34.3 (31.0-35.0) g/dl RDW 12.8 (11.0-16.0) % Plt Count 170 (160-400) X10*3/uL MPV 8.2 L (9.4-12.3) fL Immature Gran % (Auto) 0.2 (0.0-0.4) % Neut % (Auto) 56.8 (45-73) % Lymph % (Auto) 24.4 (20-40) % [place] % (Auto) 10.6 (2-11) % Eos % (Auto) 7.1 H (0-4) % Baso % (Auto) 0.9 (0-2) % Lymph # (Auto) 1.1 L (1.2-4.9) X10*3/uL [place] # (Auto) 0.5 (0.1-1.2) X10*3/uL Eos # (Auto) 0.3 (0.0-0.4) X10*3/uL Baso # (Auto) 0.0 (0.0-0.2) X10*3/uL Abs Immat Gran (auto) 0.01 (0.00-0.03) X10*3/uL Absolute Neuts (auto) 2.6 (2.0-8.3) x10*3/uL Absolute Nucleated RBC 0.000 (0.0-0.012) X10*3/uL Nucleated RBC % (auto) 0.0 (0.0-0.2) /100WBC PT (9.9-13.0) SEC INR (0.9-1.1) APTT (24.1-38.0) SEC Sodium 133 L (135-145) mmol/L Potassium 3.9 (3.3-5.1) mmol/L Chloride 100 (96-108) mmol/L Carbon Dioxide 26 (22-29) mmol/L Anion Gap 11 L (12-20) BUN 10 (9-16) mg/dL Creatinine 0.80 (0.5-1.4) mg/dL Estim Creat Clear Calc 45.8 Estimated GFR > 60 Random Glucose 109 (60-115) mg/dL Calcium 9.1 (8.4-10.2) mg/dL Total Bilirubin 0.6 (0.0-1.0) mg/dL AST 26 (5-31) U/L ALT 20 (0-31) U/L Alkaline Phosphatase 78 (39-117) U/L Troponin I High Sens (<3.5-17.0) ng/L Total Protein 7.2 (6.5-8.0) g/dL Albumin 4.3 (3.5-5.0) g/dL Urine Color STRAW Urine Appearance CLEAR Urine pH 7.0 (5.0-8.0) Ur Specific [place] <= 1.005 (1.005-1.025) Urine Protein NEG (NEG-TRACE) MG/DL Urine Glucose (UA) NEG (NEG) MG/DL Urine Ketones NEG (NEG) MG/DL Urine Blood NEG (NEG) Urine Nitrite NEG (NEG) Ur Leukocyte Esterase NEG (NEG) 01/25/22 01/25/22 Range/Units 19:34 19:34 WBC (4.8-10.8) X10*3/uL RBC (4.20-5.50) X10*6/uL Hgb (12.0-16.0) g/dl Hct (37.0-47.0) % MCV (80.0-98.0) fL MCH (27.0-33.0) pg MCHC (31.0-35.0) g/dl RDW (11.0-16.0) % Plt Count (160-400) X10*3/uL MPV (9.4-12.3) fL Immature Gran % (Auto) (0.0-0.4) % Neut % (Auto) (45-73) % Lymph % (Auto) (20-40) % [place] % (Auto) (2-11) % Eos % (Auto) (0-4) % Baso % (Auto) (0-2) % Lymph # (Auto) (1.2-4.9) X10*3/uL [place] # (Auto) (0.1-1.2) X10*3/uL Eos # (Auto) (0.0-0.4) X10*3/uL Baso # (Auto) (0.0-0.2) X10*3/uL Abs Immat Gran (auto) (0.00-0.03) X10*3/uL Absolute Neuts (auto) (2.0-8.3) x10*3/uL Absolute Nucleated RBC (0.0-0.012) X10*3/uL Nucleated RBC % (auto) (0.0-0.2) /100WBC PT 11.1 (9.9-13.0) SEC INR 1.0 (0.9-1.1) APTT 30.4 (24.1-38.0) SEC Sodium (135-145) mmol/L Potassium (3.3-5.1) mmol/L Chloride (96-108) mmol/L Carbon Dioxide (22-29) mmol/L Anion Gap (12-20) BUN (9-16) mg/dL Creatinine (0.5-1.4) mg/dL Estim Creat Clear Calc Estimated GFR Random Glucose (60-115) mg/dL Calcium (8.4-10.2) mg/dL Total Bilirubin (0.0-1.0) mg/dL AST (5-31) U/L ALT (0-31) U/L Alkaline Phosphatase (39-117) U/L Troponin I High Sens < 3.5 (<3.5-17.0) ng/L Total Protein (6.5-8.0) g/dL Albumin (3.5-5.0) g/dL Urine Color Urine Appearance Urine pH (5.0-8.0) Ur Specific [place] (1.005-1.025) Urine Protein (NEG-TRACE) MG/DL Urine Glucose (UA) (NEG) MG/DL Urine Ketones (NEG) MG/DL Urine Blood (NEG) Urine Nitrite (NEG) Ur Leukocyte Esterase (NEG) <LATESHA Jordan - Last Filed: 01/26/22 12:11> ECG Data Interpretation: Normal Sinus rhytm. Vent rate 75. TX interval 172, QRS 88, QTC 453. negtative STEMI <LATESHA Weber - Last Filed: 01/26/22 01:07> Discharge Plan Discharge Clinical Impression: Diverticulitis <LATESHA Weber - Last Filed: 01/26/22 01:07> Patient Disposition: Home, Self-Care <LATESHA Weber - Last Filed: 01/26/22 01:07> Instructions: Diverticulitis (ED) <LATESHA Weber - Last Filed: 01/26/22 01:07> Additional Instructions: You're CT scan shows diverticulitis. You will be discharged with antibiotics. Return to the ED for worsening abdominal pain, blood in stool, fever, chills, flank pain, weakness, vomiting blood, or any other concerning symptoms. Over the counter tylenol and motrin can be used for pain relief <LATESHA Weber Last Filed: 01/26/22 01:07> Prescriptions: New levofloxacin 750 mg tablet 750 mg PO DAILY 5 Days Qty: 5 0RF metronidazole 500 mg tablet 500 mg PO Q12H 7 Days Qty: 14 0RF amoxicillin-pot clavulanate 875-125 mg tablet 1 tab PO BID 10 Days Qty: 20 0RF No Action metronidazole [Flagyl] 500 mg tablet 500 mg PO Q8H Qty: 20 0RF ciprofloxacin HCl 500 mg tablet 500 mg PO Q12H Qty: 20 0RF metronidazole 500 mg tablet 500 mg PO BID 14 Days Qty: 28 0RF famotidine [Pepcid] 20 mg Tablet 20 mg PO BEDTIME lorazepam 0.5 mg tablet 1 tab PO BID PRN (Reason: anxiety) estradiol [Estrace] 0.01 % (0.1 mg/gram) Cream 1 appful VAGINAL DAILY Rx Instructions: for 14 days irbesartan 300 mg tablet 1 tab PO DAILY omega 6-yyg-jww-fish oil [Fish Oil] 1,000 mg (120 mg-180 mg) Capsule 2 cap PO DAILY <LATESHA Weber - Last Filed: 01/26/22 01:07> Interventions: ED Discharge Assessment Last Done: 01/25/22 22:19 <LATESHA Weber Last Filed: 01/26/22 01:07> Discharge Date/Time: 01/25/22 22:19 <LATESHA Weber - Last Filed: 01/26/22 01:07> Print Language: Com[place]an <LATESHA Weber Last Filed: 01/26/22 01:07>
[2022-01-25 19:48] LABS: Prothrombin Time 11.1 SEC (9.9-13.0)
[2022-01-25 19:51] LABS: Partial Thromboplastin Time 30.4 SEC (24.1-38.0)
[2022-01-25 19:56] LABS: Troponin-I High Sensitivity < 3.5 ng/L (<3.5-17.0)
[2022-01-25 20:09] VITALS: BP 143/62; PULSE 76; RESP 18; TEMP 37.2; O2SAT 97
[2022-01-25] MEDS: levoFLOXacin 500 MG TABLET PO (22:10)
[2022-01-25] MEDS: metroNIDAZOLE 500 MG TABLET PO (22:10)
== END 2022-01-25 22:19 | disposition home or self-care (01) ==
PROVIDERS: Physician Assistant; Emergency Provider Internal Medicine
DX: K57.92 Diverticulitis of intestine, part unspecified, without perforation or abscess without bleeding (principal); R10.32 Left lower quadrant pain; I10 Essential (primary) hypertension
CPT/HCPCS: 36415; 74176; 80053; 81003; 84484; 85025; 85610; 85730; 93005; 99284

== ENCOUNTER 2022-01-26 13:21 | Emergency (ER) | payer MEDICARE, SELFPAY ==
[2022-01-26 13:27] VITALS: BP 177/75; PULSE 84; RESP 18; TEMP 36.7; O2SAT 98; BMI 22.6
--- NOTE | 2022-01-26 15:54 | ED.GENADULT ---
HPI - General Adult General Chief complaint: Allergic Reaction Stated complaint: Medication reaction Time Seen by Provider: 01/26/22 15:54 Source: patient Mode of arrival: ambulatory Limitations: no limitations History of Present Illness HPI narrative: Patient is a 76 year old female presenting to the emergency department today after a medication reaction. Patient states that she was seen here yesterday and diagnosed with diverticulitis. Patient states that she got antibiotics before going home, while in the department, and afterwards she felt unwell. Patient states that she called earlier and was prescribed Augmentin to take at home instead but wanted to come in to be checked anyway. Patient states that her symptoms have resolved entirely and she feels much better from the reaction. Patient denies any dizziness, lightheadedness, abdominal pain, nausea, vomiting, fever, chills, blurry vision, double vision, loss of vision, chest pain, difficulty breathing, shortness of breath, back pain, night sweats, pain with urination, increased urinary frequency, increased urinary urgency, blood in her urine or stool, syncope or a near syncopal episode, recent trauma or falls, bowel incontinence, bladder incontinence, bowel retention, bladder retention, or any other complaints at this time. Severity: mild Relieving factors: none Exacerbating factors: none Associated symptoms: denies other symptoms Treatments prior to arrival: none Related Data Home Medications Medication Instructions Recorded Confirmed estradiol (Estrace) 1 appful vaginal DAILY 10/04/21 10/04/21 famotidine 20 mg tablet (Pepcid) 20 mg PO BEDTIME 10/04/21 10/04/21 irbesartan 300 mg tablet 1 tab PO DAILY 10/04/21 10/04/21 lorazepam 0.5 mg tablet 1 tab PO BID PRN anxiety 10/04/21 10/04/21 omega 0-ese-eqx-fish oil 1,000 mg 2 cap PO DAILY 10/04/21 10/04/21 (120 mg-180 mg) capsule (Fish Oil) Previous Rx's Medication Instructions Recorded ciprofloxacin HCl 500 mg tablet 500 mg PO Q12H #20 tabs 05/15/21 metronidazole 500 mg tablet 500 mg PO Q8H #20 tabs 05/15/21 (Flagyl) metronidazole 500 mg tablet 500 mg PO BID 14 days #28 tabs 07/21/21 levofloxacin 750 mg tablet 750 mg PO DAILY 5 days #5 tabs 01/25/22 metronidazole 500 mg tablet 500 mg PO Q12H 7 days #14 tabs 01/25/22 amoxicillin 875 mg-potassium 1 tab PO BID 10 days #20 tabs 01/26/22 clavulanate 125 mg tablet Allergies Allergy/AdvReac Type Severity Reaction Status Date / Time tetanus and diphtheria Allergy Severe Confusion Verified 01/25/22 16:15 toxoids codeine [CODEINE] Allergy Intermediate Vomiting Verified 01/25/22 16:15 lisinopril [LISINOPRIL] Allergy Intermediate MIGRAINE/HEAD Verified 01/25/22 16:15 PRESSURE morphine [MORPHINE] Allergy Intermediate ITCHING Verified 01/25/22 16:15 Review of Systems Constitutional: Constitutional: Reports no additional constitutional complaints, Denies chills, Denies fever(s) and Denies night sweats Eyes: Eyes: Reports no additional eye complaints, Denies blurry vision, Denies change in vision, Denies diplopia, Denies eye discharge, Denies loss of vision and Denies eye pain ENT: Denies dizziness Cardiovascular: Cardiovascular: Reports no additional cardiovascular complaints, Denies chest pain, Denies lightheadedness, Denies Loss of Consciousness and Denies dyspnea Respiratory: Respiratory: Reports no additional respiratory complaints and Denies dyspnea Gastrointestinal: Gastrointestinal: Reports no additional gastrointestinal complaints, Denies abdominal pain, Denies melena, Denies hematochezia, Denies change in bowel habits and Denies change in stool character Genitourinary: Genitourinary: Denies hematuria, Denies urinary frequency, Denies dysuria, Denies urinary incontinence, Denies urinary hesitancy and Denies urinary urgency Musculoskeletal: Musculoskeletal: Reports no additional musculoskeletal complaints, Denies numbness and Denies tingling Neurologic: Denies dizziness, Denies loss of vision, Denies numbness and Denies tingling Psychiatric: Psychiatric: Reports no additional psychiatric complaints Endocrine: Endocrine: Reports no additional endocrine complaints Hematologic/Lymphatic: Hematologic/Lymphatic: Reports no additional hematologic/lymphatic complaints Allergic/Immunologic: Allergic/Immunologic: Reports no additional allergic/immunologic complaints PMFSH Past Medical History Attestation statement: The following information was validated with the patient. Source: old records reviewed Medical History Abdominal pain Diverticulitis HTN (hypertension) IBS (irritable bowel syndrome) Lyme disease Rectocele Sleep apnea Urethral prolapse Surgical History H/O colonoscopy History of cholecystectomy History of esophagogastroduodenoscopy (EGD) History of hysterectomy Hx of nasal septoplasty Social History Social History Household Members: None Housing: House Alcohol intake: never Patient Tobacco Use Status: Never used Tobacco Advance Directives: No Advance Directives Information Provided: No service: No Current occupational status: retired Physical Exam ED Vital Signs: Vital Signs - 24 hr 01/26/22 13:27 01/26/22 16:07 Temperature 98.0 F Pulse Rate 84 70 Respiratory Rate 18 16 Blood Pressure 177/75 H 182/80 H Pulse Oximetry 98 100 Oxygen Delivery Method Room Air Room Air BMI result Body Mass Index 22.6 Const General: cooperative, no acute distress, alert and awake Nutritional Appearance: well nourished Orientation/consciousness: patient oriented x3 Limitations: no limitations HENMT Head: Yes normal to inspection and Yes atraumatic Ears: hearing grossly normal bilaterally and external ears normal General nose exam: Normal external nose present, no nasal discharge noted and no epistaxis Face and sinus: Yes normal facial exam, No abrasion and No laceration Mouth: Normal oral and palatal mucosa present, no drooling and no muffled voice Eyes General: appearance normal, both eyes and all related structures Periorbital: periorbital findings normal Eyelids: Yes eyelids normal Conjunctivae: conjunctivae normal Pupils: Equal, round and reactive pupils present EOM: EOMs intact bilaterally Neck Neck: Yes normal visual inspection, Yes full ROM and Yes no lymphadenopathy Chest Chest palpation & inspection: normal inspection of the chest Resp Effort & Inspection: normal respiratory effort and able to speak in complete sentences Auscultation: clear to auscultation bilaterally Cardio Rate: regular rate Rhythm: regular rhythm GI Inspection: Yes normal to inspection Neuro General: patient oriented x3 and moves all extremities Cranial nerves: Yes Equal, round and reactive pupils present Cognition (Neuro): normal cognition Motor exam (neuro): 5/5 motor strength present throughout Sensory Exam: Normal double simultaneous stimulation for sensation Coordination: [id number] test normal Extrem General: Yes normal to inspection, Yes full ROM and Yes capillary refill normal Psych Appearance: grossly normal Mental Status: mental status grossly normal Affect: normal affect Attitude: cooperative Thought process: Normal thought process present Thought content: Normal thought content present Insight: Good insight present (Psych) Medical Decision Making MDM Narrative Medical decision making narrative: Patient is a 76 year old female presenting to the emergency department today after a medication reaction. Patient's physical exam was unremarkable. I explained my physical exam findings to the patient. I answered all questions asked by the patient. I stressed the importance of the patient taking her medication as prescribed. I stressed the importance of the patient following up with her primary care provider and GI specialist. I stressed the importance of the patient returning to the emergency department immediately if her symptoms were to worsen or if she were to develop any dizziness, shortness of breath, difficulty breathing, chest pain, blurry vision, loss of vision, nausea, vomiting, abdominal pain, fever, chills, back pain, or any other complaints. Patient verbalized agreement and understanding with this treatment plan and discharge. Differential Diagnosis Differential Diagnosis: medication reaction, allergic reaction, hx of diverticulitis Medical Records Medical records reviewed: Yes I reviewed the patient's medical records. Discharge Plan Discharge Clinical Impression: Allergic reaction Patient Disposition: Home, Self-Care Instructions: Antibiotic Medication Allergy (ED) Additional Instructions: Follow up with your primary care provider. Return to the emergency department immediately if your symptoms worsen or if you develop any dizziness, shortness of breath, difficulty breathing, chest pain, blurry vision, loss of vision, nausea, vomiting, abdominal pain, fever, chills, back pain, or any other complaints. Prescriptions: No Action levofloxacin 750 mg tablet 750 mg PO DAILY 5 Days Qty: 5 0RF metronidazole 500 mg tablet 500 mg PO Q12H 7 Days Qty: 14 0RF amoxicillin-pot clavulanate 875-125 mg tablet 1 tab PO BID 10 Days Qty: 20 0RF metronidazole [Flagyl] 500 mg tablet 500 mg PO Q8H Qty: 20 0RF ciprofloxacin HCl 500 mg tablet 500 mg PO Q12H Qty: 20 0RF metronidazole 500 mg tablet 500 mg PO BID 14 Days Qty: 28 0RF famotidine [Pepcid] 20 mg Tablet 20 mg PO BEDTIME lorazepam 0.5 mg tablet 1 tab PO BID PRN (Reason: anxiety) estradiol [Estrace] 0.01 % (0.1 mg/gram) Cream 1 appful VAGINAL DAILY Rx Instructions: for 14 days irbesartan 300 mg tablet 1 tab PO DAILY omega 0-bci-zod-fish oil [Fish Oil] 1,000 mg (120 mg-180 mg) Capsule 2 cap PO DAILY Referrals: [facility] [place] [facility] [Provider Group] (Call to establish with a primary care provider if you do not already have one. If you have one, please follow up with their office. ) [facility] [place] Primary [facility], [place] [Provider Group] (Call to establish with a primary care provider if you do not already have one. If you have one, please follow up with their office. ) [facility] [place] Primary [facility] [Provider Group] (Call to establish with a primary care provider if you do not already have one. If you have one, please follow up with their office. ) Interventions: ED Discharge Assessment Last Done: 01/26/22 16:18 Discharge Date/Time: 01/26/22 16:18 Print Language: [place]
[2022-01-26 16:07] VITALS: BP 182/80; PULSE 70; RESP 16; O2SAT 100
== END 2022-01-26 16:18 | disposition home or self-care (01) ==
PROVIDERS: Emergency Provider Emergency Medicine
DX: T78.49XA Other allergy, initial encounter (principal); T36.95XA Adverse effect of unspecified systemic antibiotic, initial encounter; Y92.230 Patient room in hospital as the place of occurrence of the external cause; X58.XXXA Exposure to other specified factors, initial encounter
CPT/HCPCS: 99282

== ENCOUNTER 2024-05-06 11:06 | Outpatient (REF) | payer MEDICARE, SELFPAY ==
[2024-05-07 13:34] LABS: Immunoglobulin E 23 kU/L (<OR=114)
== END 2024-05-06 11:07 | disposition home or self-care (01) ==
LOC: HO.10HDL 11:06
PROVIDERS: Visit Provider Otolaryngology
DX: J30.89 Other allergic rhinitis (principal)
CPT/HCPCS: 36415; 82785; 86003